=== PATIENT | male | born 1945 | race Caucasian/White ===

== ENCOUNTER 2017-03-17 19:07 | Inpatient (IN) | payer OTHER ==
[~2017-03-17] VITALS: Ht 170.2 cm; Wt 88.0 kg
--- NOTE | ~2017-03-17 | DS ---
Unit #: [id number] #: [id number] Patient: CARMELA CORRAL [id number] [address] [address] [id number] I MR#: [id number] NAME: CARMELA CORRAL ROOM: [facility] Age: 71 Sex: M Admission Date: 03/17/2017 : 1945 Discharge Date: 03/27/2017 Attending Physician: Kenia Ramirez M.D. Primary Care Physician: Generic Doctor Not In System DISCHARGE SUMMARY PRIMARY CARE PROVIDER None. PRINCIPAL DIAGNOSES 1. New-onset seizure, likely secondary to alcohol withdrawal. 2. Acute hypoxic respiratory failure, currently still maintained on 2 L of oxygen per nasal cannula continuously. 3. Non ST segment elevation myocardial infarction with normal coronaries per heart cath. 4. Right shoulder fracture, status post reverse total shoulder arthroplasty. 5. Left humerus fracture, nondisplaced. 6. Acute alcohol withdrawal. 7. Toxic metabolic encephalopathy. 8. Medication-induced hypersomnolence, i.e. Keppra induced. 9. Acute kidney injury, prerenal, resolved. 10. Chronic obstructive pulmonary disease. 11. Paroxysmal atrial fibrillation, now converted to sinus tachycardia. 12. Hypercoagulable state with history of deep venous thrombosis and pulmonary embolus. 13. Chronic alcohol abuse. 14. Aspiration pneumonia, status post treatment. Sepsis secondary to left lower lobe aspiration pneumonia, now resolved. 15. Severe lactic acidosis, now resolved. 16. Mild rhabdomyolysis. 17. Transaminitis, secondary to rhabdomyolysis and chronic alcohol abuse. 18. Alcoholic dementia. 19. Depression. 20. Moderate protein malnutrition. 21. Reactive hyperglycemia. 22. T12 compression fracture, undetermined duration, asymptomatic. 23. Osteoporosis. 24. Tobacco abuse. 25. Hyperlipidemia. CONSULTANTS 1. Dr. Pate, Neurology. 2. Dr. Barry, Cardiology. 3. Dr. Crane, Orthopedic Surgery. 4. Dr. Kowalski, Psychiatry. 5. Dr. Allen Delvalle, Pulmonology. PROCEDURES 1. Left-sided heart catheterization on March 23, 2017 with anterolateral Unit #: [id number] #: [id number] Patient: CARMELA CORRAL hypokinesis. Coronaries were normal. 2. EEG revealing changes of encephalopathy, no seizure activity. 3. Right reverse shoulder arthroplasty and right shoulder bicep tenodesis. This occurred without complication. 4. CT of the head without contrast on March 17, 2017 with no acute abnormality, but this was limited secondary to motion. 5. Chest x-ray on March 17, 2017 with poor inspiratory result. Endotracheal tube is 4 cm above the jazlyn. 6. X-ray of right shoulder on March 19, 2017 with transverse fracture of the proximal humerus and rotation of humeral head noted. 7. CT of the chest without contrast on March 21, 2017 with small bilateral pleural effusions with pneumonia in lung base, left greater than right. Aneurysmal dilatation of the aorta noted. Fracture of the right humerus. Compression fracture of T12, question acute versus subacute. 8. CT of the right upper extremity without contrast on March 21, 2017 with moderate to severely comminuted proximal humerus fracture with complete dislocation of the humeral head fragment posteriorly. Posterior rotation of the fragment with anterior dislocation of the anterior humeral fragment. Mild comminution of greater tuberosity and surgical neck fracture. 9. X-ray of left shoulder on March 24, 2017 with a subtle linear lucency involving the anatomic neck of the left humerus consistent with fracture. CLINICAL HISTORY AND HOSPITAL COURSE Mr. Corral is a nice 71-year-old male brought into our emergency department after witnessed seizure at home by family. Patient had a collapse after seizure and EMS was called. Patient was intubated for airway protection. Patient was started on antiepileptic medications in our emergency department and subsequently admitted to the ICU. In regard to patient's seizure, Dr. Pate was consulted. The patient was maintained on both Keppra and Vimpat until mental status improved. EEG did not reveal any seizure-like activity. Patient questionably had a seizure in the past but that was also again questionably related to alcohol withdrawal. I will note patient's alcohol level here was less than 5 upon presentation. Following extubation as outlined below, patient was tapered to single Keppra therapy. However, patient remained significantly somnolent on Keppra therapy and ultimately had to be changed to Vimpat. Somnolence resolved. Unfortunately, Vimpat on an outpatient basis is much too expensive. At this time given we have no evidence of any epileptic type disorder, it is most likely that patient's seizure was secondary to alcohol withdrawal. At this point, we are going to taper Vimpat over the next three days and monitor patient off of antiepileptic medications. He can follow up with Dr. Young as an outpatient. In regard to patient's respiratory failure upon presentation, Dr. Delvalle was consulted. The patient was found to have bibasilar aspiration pneumonia and was maintained on clindamycin. He completed a seven-day course of therapy but still remains mildly hypoxic with an elevated white blood cell count. I am going to complete another five-day course of Augmentin and hypoxia can be monitored. He also has underlying COPD, which I suspect is an associated factor in his hypoxia, and I will place him on Symbicort in addition to DuoNeb nebulizer treatments on a p.r.n. basis. He does not have any evidence of wheezing. I think hypoxia will resolve in the course of the next several days. Upon presentation, patient also had a troponin drawn which was initially elevated at 0.56 and peaked at 1.28. He also Unit #: [id number] #: [id number] Patient: CARMELA CORRAL had paroxysmal atrial fibrillation but converted back to normal sinus rhythm. Cardiology was consulted. Patient was initially placed on heparin drip and subsequently changed to therapeutic Lovenox. When mental status and respiratory status were improved, the patient underwent heart cath revealing normal coronaries. He will continue on aspirin therapy as an outpatient. Ejection fraction is normal at 50% to 55%. Patient did have some associated alcohol withdrawal during hospitalization requiring CIWA protocol and Librium which has subsequently been tapered. I will admit that these medications may have played a role in patient's encephalopathy and hypoactive delirium. He also had some associated sundowning and was initially on Risperdal but again was significantly somnolent and this has been tapered and discontinued. Sundowning has improved; however, I will provide some Risperdal on a p.r.n. basis given he is going to transfer to rehab. When patient was more awake, he was complaining of some right shoulder pain and his shoulder was noted over the course of the next few days to be significantly swollen and bruised. X-ray revealed a significant right humeral fracture for which Dr. Crane was consulted. Following normal heart cath, patient underwent reverse right shoulder arthroplasty. Postoperatively, he has done well. I will note preoperatively he also complained of some left shoulder pain and was found to also have a left humerus fracture that is nondisplaced and is nonoperative at this time. Patient today is clinically much improved, though his mental status still tends to be a bit low. After discussion with family in addition to my prior interaction with this patient, I think he has some alcoholic dementia. Plan is for him to be discharged to rehab and likely be discharged to an assisted living following rehab. I will note patient also has a history of multiple DVTs and PEs and was noncompliant with his anticoagulation as an outpatient. 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 He can be seen by hematology as an outpatient for further evaluation. Patient will be discharged to rehab today. DISCHARGE CONDITION Stable. DISCHARGE STATUS Discharge to rehab. DISCHARGE MEDICATIONS 1. Combivent nebulizer treatment 3 mL every six hours p.r.n. for shortness of breath. 2. Xarelto 20 mg daily. 3. Vimpat 100 mg p.o. daily on March 27, , and and then to be discontinued. 4. Lexapro 10 mg daily. 5. Metoprolol tartrate 12.5 mg b.i.d. 6. Senokot S one tablet b.i.d. 7. Lipitor 10 mg at bedtime. 8. Lisinopril 2.5 mg daily. 9. Daily multivitamin. 10. Aspirin 81 mg daily. 11. Oxycodone 5 mg one to two tablets p.o. q.4 hours p.r.n. for pain. Unit #: [id number] #: [id number] Patient: CARMELA CORRAL 12. Os-Oleksandr 500 plus D one tablet b.i.d. 13. Augmentin 875 mg p.o. b.i.d. for five days. 14. Symbicort 160/4.5 mcg two puffs b.i.d. 15. Oxygen at 3 L per nasal cannula now but titrate for saturations greater than or equal to 92%. DISCHARGE INSTRUCTIONS 1. The patient can follow a regular diet. 2. In regard to his upper extremity fractures, he is nonweightbearing on right upper extremity. (1) range of motion to elbow, wrist, and hand. To left upper extremity, he can perform pendulums and again do range of motion to elbow, wrist, and hand but is nonweightbearing. However, he can use his left upper extremity for ADLs and eating and use it for assistance with repositioning in and out of bed and chair. 3. Patient will follow up with Dr. Crane in two weeks. 4. Patient is to follow up with Dr. Musa Young of outpatient neurology upon discharge from rehab. 5. Patient will follow up with Dr. Barry upon discharge from rehab. Again, will have further discussion with family while in rehab regarding discharge plan from there but I anticipate discharge to assisted living. Time spent on discharge today, 57 minutes. Dictated by... Kenia Ramirez M.D. JACKIE/angi TD: 03/27/2017 09:45 JOB #: [id number] DISCHARGE SUMMARY Page 1 of 1 X Kenia Ramirez MD X DISCHARGE SUMMARY
--- NOTE | ~2017-03-17 | EKG ---
PATIENT: CARMELA DEMPSEY UNIT #: [id number] Ventricular Rate: 133 BPM Atrial Rate: 94 BPM QRS Duration: 72 ms Q-T Interval: 384 ms QTC Calculation(Bezet): 571 ms Calculated R Carmichaels: 27 degrees Calculated T Carmichaels: -19 degrees Diagnosis Line: Atrial fibrillation with rapid ventricular Diagnosis Line: response Diagnosis Line: Possible Anterior infarct , age undetermined Diagnosis Line: Abnormal ECG Diagnosis Line: When compared with ECG of 04-SEP-2016 08:53, Diagnosis Line: Atrial fibrillation has replaced Sinus rhythm Diagnosis Line: Vent. rate has increased BY 58 BPM Diagnosis Line: Borderline criteria for Anterior infarct are now Diagnosis Line: Present Diagnosis Line: ST now depressed in Anterolateral leads Diagnosis Line: T wave amplitude has increased in Anterior leads Diagnosis Line: Confirmed by NEERAJ TROY MD ([id number]) on Diagnosis Line: 03/18/2017 11:57:44 AM INTERPRETING MD: SYDNI HAYWOOD
--- NOTE | ~2017-03-17 | CO ---
Unit #: [id number] #: [id number] Patient: CARMELA DEMPSEY [id number] [facility] [address] [place], [place] [address] [id number] I MR#: [id number] NAME: CARMELA DEMPSEY ROOM: 341 Age: 71 Sex: M Admission Date: 03/17/2017 : 1945 Attending Physician: Kenia Ramirez M.D. Primary Care Physician: Generic Doctor Not In System Consultation Date: 03/19/2017 CONSULTATION REPORT REASON FOR CONSULTATION Alcohol abuse, seizure, respiratory failure, agitation, delirium. HISTORY OF PRESENT ILLNESS Mr. Seals is a 71-year-old, white male seen in CCU 3, bed 21 on 03/19/[address] [facility]. Patient was admitted with a new onset of seizure, respiratory failure, and collapse. Patient dressed in hospital attire, lying comfortably in bed. Confused. Unable to give any reliable information. Patient was somewhat sleepy. Received medication for agitation last night. Patient was extubated yesterday. Patient's daughter was in the room. Obtained information from her as well as from chart and the nursing staff. Patient has a long history of alcohol abuse and recent onset of seizure. Patient was drinking heavily prior to the admission. Patient was admitted with seizure and respiratory failure needing intubation. Patient still having periods of confusion and agitation. Patient's vital signs: 99.2, 84, 20, 147/78, and oxygen saturation 99%. PAST PSYCHIATRIC HISTORY Remarkable for history of alcohol abuse, history of depression, paranoia, history of assessment at [facility] in 2008 with similar problems. MEDICAL HISTORY AND MEDICATION HISTORY History of extensive DVT/PE, history of alcohol abuse, problems with memory, COPD, and hyperlipidemia. MEDICATIONS: On Lasix, Coumadin, and aspirin. ALLERGIES To penicillin. FAMILY HISTORY AND SOCIAL HISTORY Patient has a good support system from family. No known history of any abuse. History of substance abuse as mentioned above. Drug of choice: Alcohol. REVIEW OF SYSTEMS Complete review of systems is unremarkable, except as mentioned above. MENTAL STATUS EXAMINATION VITAL SIGNS: Please see above. GENERAL APPEARANCE: Patient dressed in hospital attire. Lying comfortably in bed. Somewhat sleepy, drowsy. Unable to give a coherent history. Unit #: [id number] #: [id number] Patient: CARMELA DEMPSEY ATTENTION SPAN AND CONCENTRATION: Poor. SPEECH: Unable to understand. ORIENTATION: Unable to assess. MOOD AND AFFECT: Flat. THOUGHT PROCESS AND THOUGHT CONTENT: Unable to assess. RECENT AND REMOTE MEMORY: Unable to assess. LANGUAGE: Unable to assess. FUND OF KNOWLEDGE: (1) . INSIGHT AND JUDGEMENT: Impaired. DIAGNOSES PSYCHIATRIC 1. Delirium F05. 2. Alcohol use disorder, severe, F10.20. SECONDARY DIAGNOSIS: Deferred. MEDICAL DIAGNOSIS: Please refer to H and P. STRESSORS: Psychosocial stressors. ASSESSMENT/PLAN 1. Supportive psychotherapy and psychoeducation provided to patient and family. Patient unable to comprehend much at this time. 2. Recommending at this time to continue with the current treatment and after patient is stable medically, consider inpatient rehab program, 30 days, such as [facility] or [facility]. If needed, consider med management to control agitation and psychosis. Please feel free to call if any questions, telephone number . Dictated by... Maco Kowalski M.D. HEBERT/prince TD: 03/20/2017 09:07 JOB #: [id number] CONSULTATION REPORT Page 1 of 1 X Maco Kowalski MD CONSULTATION REPORT
--- NOTE | ~2017-03-17 | CO ---
Unit #: [id number] #: [id number] Patient: CARMELA CORRAL [id number] [facility] [address] [place], [place] [address] [id number] I MR#: [id number] NAME: CARMELA CORRAL ROOM: 448 Age: 71 Sex: M Admission Date: 03/17/2017 : 1945 Attending Physician: Kenia Ramirez M.D. Primary Care Physician: Generic Doctor Not In System Consultation Date: 03/26/2017 CONSULTATION REPORT REASON FOR CONSULTATION Followup. DISCUSSION Mr. Carmela Corral is a 71-year-old male seen in room 448 bed-1 on 03/26/17 as a followup. Patient was seen at [facility]. Also obtained information from patient's daughter. Patient was sad, depressed, withdrawn, flat affect, confused but cooperative. Reported in pain. Patient had surgery on his right arm, recovering well. No agitation. Denied any thought of harming self or otherwise. MENTAL STATUS EXAMINATION VITAL SIGNS: 99.1, 96, 17, 120/69. Oxygen saturation 94%. GENERAL APPEARANCE: Patient dressed in hospital attire, lying in bed with the right hand having bandages and in a sling. Patient answered questions slowly. Attention span and concentration poor. Speech slow in volume and rate. Oriented in self. Mood and affect sad, dysphoric, flat, depressed. Thought process circumstantial. Thought content - guarded, paranoid but denied any thoughts of harming self or others. Recent and remote memory poor. Language - fair. Fund of knowledge fair. Insight and judgment impaired. DIAGNOSIS PSYCHIATRIC: 1. Alcohol use disorder, severe - F10.20. 2. Major depressive disorder, recurrent, severe - F33.0. 3. 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 ASSESSMENT/PLAN 1. Supportive psychotherapy and psychoeducation provided to patient but patient unable to comprehend much. 2. Recommending at this time to continue with current medication with the plan to add Lexapro 10 mg at bedtime for depressive symptoms. If needed, consider further additional medication. Please feel free to call if any questions. Telephone number [phone]. Dictated by... Maco Kowalski M.D. HEBERT/rocio Unit #: [id number] #: [id number] Patient: CARMELA CORRAL TD: 03/27/2017 08:54 JOB #: [id number] CONSULTATION REPORT Page 1 of 1 X Maco Kowalski MD CONSULTATION REPORT
--- NOTE | ~2017-03-17 | CO ---
Unit #: [id number] #: [id number] Patient: CARMELA CORRAL [id number] [facility] [address] [place], [place] [address] [id number] I MR#: [id number] NAME: CARMELA CORRAL ROOM: 448 Age: 71 Sex: M Admission Date: 03/17/2017 : 1945 Attending Physician: Kenia Ramirez M.D. Primary Care Physician: Generic Doctor Not In System Consultation Date: 03/27/2017 CONSULTATION REPORT REASON FOR CONSULTATION Followup. DISCUSSION Mr. Carmela Corral is a 71-year-old white male seen in room 448, bed one, on 03/27/17. The patient was seen at [facility]. The patient reported that he is doing fairly well, reports pain is better. The patient was able to participate in physical therapy. Patient's vital signs: 98.5, 87, 16, 118/63. Patient still having problems with confusion, problems with memory but able to answer questions appropriately. The patient denied any thoughts of harming self or others, still sad, depressed, withdrawn. No side effects of medication. REVIEW OF SYSTEMS Complete review of systems unremarkable. MENTAL STATUS EXAMINATION GENERAL APPEARANCE: Patient dressed casually, lying comfortably in bed, cooperative. ATTENTION SPAN AND CONCENTRATION: Fair to poor. SPEECH: Slow in volume with long pauses. ORIENTATION: Oriented in self and place. MOOD AND AFFECT: Sad, dysphoric, flat. THOUGHT PROCESS: Circumstantial. THOUGHT CONTENT: Guarded but denied any thoughts of harming self or others. RECENT AND REMOTE MEMORY: Poor. LANGUAGE: Intact. FUND OF KNOWLEDGE: Poor. INSIGHT AND JUDGMENT: Poor. DIAGNOSIS Psychiatric: 1. Alcohol use disorder, severe, F10.20. 2. Major cognitive disorder due to Alzheimer disease/alcohol use without behavioral disturbances, F02.80. ASSESSMENT/PLAN 1. Supportive psychotherapy/psychoeducation provided to patient. 2. Educated about benefits and side effects of medication and course and prognosis of illness. 3. Advised to continue with current medication, Risperdal and Lexapro combination. If needed, consider further adjustment of medication. We will continue to follow. Please feel free to call if any Unit #: [id number] #: [id number] Patient: CARMELA CORRAL, telephone number [phone]. Dictated by... Jennfier Hi TD: 03/30/2017 07:07 JOB #: [id number] CONSULTATION REPORT Page 1 of 1 X Maco Kowalski MD CONSULTATION REPORT
--- NOTE | ~2017-03-17 | HP ---
Unit #: [id number] #: [id number] Patient: CARMELA DEMPSEY [id number] [address] [place], [place] [address] [id number] I MR#: [id number] NAME: CARMELA DEMPSEY ROOM: [facility] Age: 71 Sex: M Admission Date: 03/17/2017 : 1945 Attending Physician: Kath Woods M.D. Primary Care Physician: Generic Doctor Not In System HISTORY AND PHYSICAL CHIEF COMPLAINT New onset seizure with respiratory failure and collapse. HISTORY This 71-year-old male with history of extensive PEs, DVTs, COPD, hyperlipidemia, and alcohol abuse, is admitted following a seizure. Apparently, the patient was outside this afternoon. Around 6:30 was staring off in space, and then had two witnessed what sounds to be generalized seizures. He was put on his left side, and was unresponsive. He had labored breathing but never completely stopped breathing. EMS arrived and intubated the patient in the field. He was brought to this emergency department where he looks to be liang, quite ill, bradycardic. Never lost his pulse. ABG performed showed profound metabolic acidosis and hypoxic respiratory failure. He was given an amp of bicarb. His initial EKG revealed A-fib with RVR which is new, but it appears to now be in a sinus tachycardia. He was now awake, alert, following commands, moving all extremities. Case was discussed with neurology after a head CT showed no acute disease, but was limited study. The patient received Keppra and Vimpat. Orders have been given for lactulose and elevated ammonia level and Rocephin for a left lower lobe infiltrate. The patient does drink on a daily basis eight beers and about a pint of whiskey level. His current alcohol level is less than 5. No previous history of seizures. PAST MEDICAL HISTORY 1. History of extensive DVTs and PEs. The patient was admitted to this facility 08/2016 for bilateral submassive pulmonary emboli, status post EKOS. He had extensive recurrent right lower extremity DVT. Unfortunately, the patient is not compliant with his Coumadin. 2. History of alcohol abuse. 3. Some memory loss. 4. COPD. 5. Hyperlipidemia. 6. Appendectomy. 7. Varicose vein stripping. ALLERGIES Possibly to penicillin, unknown reaction. HOME MEDICATIONS 1. Lasix p.r.n. 2. Coumadin which the patient is noncompliant. 3. Aspirin 81 mg daily. Unit #: [id number] #: [id number] Patient: CARMELA DEMPSEY FAMILY HISTORY Negative for blood clots. SOCIAL HISTORY The patient lives alone. He smokes one pack per day of tobacco. He drinks eight beers and a pint of whiskey on a daily basis. REVIEW OF SYSTEMS Impossible to obtain as the patient is intubated. PHYSICAL EXAMINATION GENERAL APPEARANCE: Intubated 71-year-old male who was awake and alert when I walked into the room. VITAL SIGNS: Temperature has not yet been obtained, pulse 113, respirations 16, initial blood pressure 162/146, currently blood pressure is 121/81. O2 saturation is 100% on FIO2 of 100%. HEENT: Eyes PERRLA. Extraocular muscles are intact. Pharynx is benign with poor dentition. NECK: Supple without adenopathy or thyromegaly. CHEST: Reveals some rhonchi. CARDIAC: Slightly tachy S1 and S2 without murmur. ABDOMEN: Bowel sounds are present. Nontender. No hepatosplenomegaly or masses. EXTREMITIES: Notable for chronic swelling of the right leg. Pedal pulses are diminished. NEUROLOGIC EXAM: The patient was awake, alert. When I walked into the room, he was following commands and moving all of his extremities equally. DIAGNOSTIC STUDIES LABORATORY: Admission labs - hematocrit is 43.8, MCV 106.9, white blood count is 18.1, normal platelet count. Coags are normal. SMA-12 - glucose 311 which was newly elevated, creatinine 1.9, also newly elevated. Chloride 96, CO2 is 9, AST 50. Ammonia level 329. Will repeat value. Lactic acid 20. Alcohol level less than 5. Acetaminophen and salicylate levels are negligible. Cardiac markers are negative. ABG - pH 6.92, pCO2 42, pO2 150, O2 saturation is 95% on tidal volume 600, AC 16, FIO2 100% and PEEP of 5. His urine tox screen is positive for benzos. Urinalysis - 3+ protein, positive glucose, 3+ blood with 5-10 red cells, 10-25 white cells but no bacteria. IMAGING: Chest x-ray - ET-tube in good position. Left lower lobe infiltrate noted. Head CT very limited but grossly normal. May suggest repeat head CT. CARDIOVASCULAR: EKG shows A-fib, RVR, rate [address] wave depression noted V4 through V6. Unit #: [id number] #: [id number] Patient: CARMELA DEMPSEY ASSESSMENT 1. New onset seizure with collapse: Patient required intubation in the field for respiratory distress, but never stopped breathing, never lost his pulse. He is now awake, following commands. The seizure may be related to alcohol withdrawal, may be related to respiratory issues with secondary seizure. 2. History of extensive pulmonary emboli and DVT, noncompliant with Coumadin. 3. Rule out aspiration pneumonia. 4. Acute hypoxic respiratory failure, rule out PE versus related to pneumonia. 5. Alcohol abuse: Patient's alcohol level is less than 5 currently. 6. Likely reactive hyperglycemia. 7. Elevated ammonia level: Will repeat. 8. Acute kidney injury. 9. COPD with tobacco abuse. 10. Initial A-fib, now in a sinus rhythm. PLANS 1. IV heparin. 2. Rocephin and clindamycin along with Duo-Nebs pending sputum and blood cultures. 3. Repeat cardiac enzymes, EKG. Will request an echo in the morning. Repeat chemistries and ammonia level along with ABG and check IV fluids and ventilator appropriately. 4. Case was discussed with neurology. Patient is receiving Vimpat and Keppra. 5. Will ask for repeat head CT and EEG. 6. Benzos and vitamins. 7. Pulmonary consultation. 8. H2 jenifer gastritis prophylaxis. 9. Further workup and consultants depending on above. Critical care time spent in evaluating this patient was 40 minutes. Dictated by Kath Woods M.D. AML/df TD: 03/18/2017 05:03 JOB #: [id number] CC: Jennifer Trevino HISTORY AND PHYSICAL Page 1 of 1 X Kath Woods MD HISTORY AND PHYSICAL
--- NOTE | ~2017-03-17 | CT71 ---
[facility] A Service of [facility] RADIOLOGY TEXT RESULTS PATIENT: CARMELA DEMPSEY LOCATION: [address] : [birth year] UNIT #: [id number] AGE: [address]: Kenia Ramirez MD SEX: M ORDER DR: [id number] [facility] [address] [facility]. [place], [place] [address] [id number] I MR#: [id number] #: [id number] NAME: CARMELA DEMPSEY : 1945 SEX: M STUDY DATE/TIME: 03/17/2017 19:22 UNIT: [facility] ROOM: [facility] STUDY DESCRIPTION: CT Head Wo Contrast Attending Physician: Kenia Ramirez M.D. Ordering Physician: Prabhakar Carroll D.O. Primary Care Physician: Generic Doctor Not In System MEDICAL IMAGING REPORT This report is preliminary unless electronic signature is present EXAM Head CT without contrast 03/17/2017 HISTORY Patient unresponsive after [address] exam was performed with one or more of the following radiation dose reduction techniques: automatic exposure control, adjustment of mA and/or kV according to patient size, and iterative reconstruction. FINDINGS Multiple axial images were obtained from the skull base to vertex without intravenous contrast administration. Examination is severely limited by patient motion with resulting artifact. Consider repeat head CT for further evaluation. There is generalized enlargement of the ventricles and sulci characteristic of atrophy and there is periventricular microvascular white matter ischemic change. 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 There is no midline shift. There is no mass or mass effect, hemorrhage or acute infarct. The visualized paranasal sinuses are clear. IMPRESSION Severely limited examination by patient motion with resulting artifact. Consider repeat head CT for further evaluation. No gross acute abnormality is identified on this severely limited exam. Dictated by... Brock Bella M.D. THIS IS AN ELECTRONICALLY VERIFIED REPORT Brock Bella M.D. at 03/18/2017 2:19 PM [facility]/cmm [facility] A Service of [facility] RADIOLOGY TEXT RESULTS PATIENT: CARMELA DEMPSEY LOCATION: [facility]3-21 : [birth year] UNIT #: [id number] AGE: [address]: Kenia Ramirez MD SEX: M ORDER DR: TD: 03/18/2017 08:18 JOB #: [id number] MEDICAL IMAGING REPORT Page 1 of 1 COPY
--- NOTE | ~2017-03-17 | CO ---
Unit #: [id number] #: [id number] Patient: CARMELA DEMPSEY [id number] [facility] [address] [facility]. [place], [place] [address] [id number] I MR#: [id number] NAME: CARMELA DEMPSEY ROOM: 341 Age: 71 Sex: M Admission Date: 03/17/2017 : 1945 Attending Physician: Kenia Ramirez M.D. Primary Care Physician: Generic Doctor Not In System Consultation Date: 03/18/2017 CONSULTATION REPORT PRIMARY CARE PHYSICIAN Generic doctor, not in system. REASON FOR CONSULTATION New onset seizure with respiratory failure and collapse. PATIENT IDENTIFICATION This is a 71-year-old, right-handed, white male, who is evaluated in room ICU 21 at [facility]. SOURCE OF INFORMATION The family and detailed evaluation done by admitting team. PROBLEM LIST 1. The biggest issue I believe is noncompliance. 2. History of extensive DVTs and PEs in the past. He is supposed to be on anticoagulation, and he is apparently not taking. 3. History of alcohol abuse. 4. Memory loss. 5. COPD. 6. Hyperlipidemia. 7. Appendectomy. 8. Varicose vein stripping. HISTORY OF PRESENT ILLNESS This is a 71-year-old gentleman with extensive medical issues and he was outside yesterday afternoon around 6:30 p.m., he apparently started staring off in space and then had several witnessed seizures, apparently 2 generalized convulsive seizures. He was put on his left side. He was unresponsive. He had labored breathing. EMS was called and they arrived and intubated patient in the field. He was brought to the emergency room. His ABG showed profound metabolic acidosis and hypoxic respiratory failure. He was given an amp of bicarb. He had some atrial fibrillation and RVR on his EKG, but then later on was in sinus tach, so he was put on Keppra and Vimpat. He was intubated and put in ICU and canoe maker saw him. When I saw this morning, he was awake and alert. He was extubated and he was following commands. He was confused. His alcohol level was less than 5. The question is that was he withdrawing. His daughter, Anita, who was at bedside, reports that there was alcohol in the refrigerator. He has no prior history of seizures. No prior history of DTs, but rather heavy alcohol user, so the question become is this withdrawal or these new Unit #: [id number] #: [id number] Patient: CARMELA DEMPSEY seizures or anything else going on. Nothing suggesting FILM AND VIDEO EDITOR infection. Head CT was okay. He is noncompliant to the medication. PAST MEDICAL HISTORY As discussed above. PAST SURGICAL HISTORY As discussed above. ALLERGIES Penicillin, unknown reaction. HOME MEDICATIONS Lasix, Coumadin, aspirin. FAMILY HISTORY Negative for blood clots. No history of seizures. SOCIAL HISTORY He lives alone. Smokes about a pack a day of tobacco and drinks 8 beers and a pint of whiskey essentially on daily basis. He has some alcohol in his refrigerator. REVIEW OF SYSTEMS Could not be obtained. He is too drowsy. He is too confused, but he is extubated. PHYSICAL EXAMINATION VITAL SIGNS: Temperature 98 degrees Fahrenheit; pulse is 109, it was anywhere from 86 to 109; respirations 20; blood pressure 118/68, it is running around that range and no pain was reported; O2 saturations were 92% to 100%. Weight of 202 pounds. BMI was 31. NEUROLOGIC: The patient is awake. He is alert. He thinks he is at home. He is not really oriented to time. He starts telling me his age. Cranial examination demonstrates respond to threats in the primary peng. Full peng are questionable. Eye movements are conjugate. I did not see any ptosis. I did not see any nystagmus. Extraocular movements seemed to be intact. Strength of muscles of facial expression is normal. Hearing seemed to be intact. Tongue was midline. I could not visualize the oropharynx or uvula. Head turning was spontaneous. Motor examination demonstrated normal bulk, tone. Strength was 5-/5 all over. No tremors were seen. Sensory examination intact for soft touch and pain sensation. No extinction was seen. Romberg was not evaluated. Gait examination was deferred. I could not get any reflexes. Toes are equivocal. Coordination was slow. DIAGNOSTIC STUDIES Unit #: [id number] #: [id number] Patient: CARMELA DEMPSEY LABORATORY RESULTS: Reviewed. His initial pH was 6.9, it is 7.5. Random glucose was 175 to 311. Albumin was 2.9, AST is 82, ALT is 46. They both went up. Troponin was 1.28, it was 0.56 yesterday. Ammonia level was 329 yesterday, it is 16 now. B12 is pending. Lactic acid was 19.9 yesterday. PTT was 30 to 49.7. White count is 16.0, H and H of 11.9 and 35.0, platelet count of 203. Urine drug screen was positive for benzodiazepines, probably what he got. Urinalysis showed 3+ protein, glucose 100, 10 to 25 wbc's, and few bacteria. IMAGING STUDIES: Head CT was reported as unremarkable. This was a limited exam because of motion artifact. IMPRESSION 1. Multiple seizures, was he going through withdrawal, we may not be able to ever know. He has no prior history of seizures. He is improving, so I told the family the first thing was to stop the seizures, so continue the present antiepileptics. 2. Issue is to find out if he has history of epilepsy and treat it if needed, otherwise this could be provoked events. 3. Issue is airway breathing and circulation. He is improving, so we will give him supportive care. I talked to his daughter. I will follow him and see how things go and further workup may be based on what we find. We will check B12, folate, continue thiamin and we will see how things turnaround planner. Call me for any other questions, issues, or concerns. Dictated by... Zeyad Pate M.D. AILYN/jean-pierre TD: 03/19/2017 03:13 JOB #: [id number] CONSULTATION REPORT Page 1 of 1 X Zeyad Pate MD CONSULTATION REPORT
--- NOTE | ~2017-03-17 | CR72 ---
[facility] A Service of [facility] RADIOLOGY TEXT RESULTS PATIENT: CARMELA DEMPSEY LOCATION: [address] : [birth year] UNIT #: [id number] AGE: [address]: Kenia Ramirez MD SEX: M ORDER DR: [id number] [facility] [address] [facility]. [place], [place] [address] [id number] I MR#: [id number] Acc #: [id number] NAME: CARMELA DEMPSEY : 1945 SEX: M STUDY DATE/TIME: 03/17/2017 19:44 UNIT: [facility] ROOM: [facility] STUDY DESCRIPTION: CR Chest Single View Portable Attending Physician: Kenia Ramirez M.D. Ordering Physician: Prabhakar Carroll D.O. Primary Care Physician: Generic Doctor Not In System MEDICAL IMAGING REPORT This report is preliminary unless electronic signature is present EXAM Portable chest 03/17/2017 HISTORY Respiratory failure, intubated, follow up infiltrates. Altered mental status, shortness of breath today. FINDINGS The cardiac and mediastinal structures are stable compared with 09/03/2016. Endotracheal tube has been inserted with the tip 4 cm above the jazlyn. There is poor inspiratory result and elevation of the left hemidiaphragm with infiltrate or atelectasis in the left lower lobe and there is discoid atelectasis at the right base. The upper lungs are clear. There are no pleural effusions. IMPRESSION 1. Endotracheal tube tip is 4 cm above the jazlyn. 2. Poor inspiratory result with infiltrate or atelectasis in the left lower lobe. Dictated by... Brock Bella M.D. THIS IS AN ELECTRONICALLY VERIFIED REPORT Brock Bella M.D. at 03/18/2017 2:19 PM CHARMAINE/himanshu TD: 03/18/2017 08:28 JOB #: [id number] MEDICAL IMAGING REPORT Page 1 of 1 COPY
--- NOTE | ~2017-03-17 | CO ---
Unit #: [id number] #: [id number] Patient: CARMELA CORRAL [id number] [facility] [address] [facility]. [place], [place] [address] [id number] I MR#: [id number] NAME: CARMELA CORRAL ROOM: 341 Age: 71 Sex: M Admission Date: 03/17/2017 : 1945 Attending Physician: Kenia Ramirez M.D. Primary Care Physician: Generic Doctor Not In System Consultation Date: 03/23/2017 CONSULTATION REPORT REASON FOR CONSULTATION Followup. DISCUSSION Mr. Carmela Corral is a 71-year-old white male, seen in room 341, bed 1 on 03/23/2017 at [facility]. The patient dressed in hospital attire, lying comfortably in bed, and seems somewhat sleepy, drowsy, but able to answer questions appropriately. The patient still having problem with anxiety, problem with memory, confusion. The patient's WBC is 13.2, hemoglobin 10.2. The patient's vital signs; temperature 98.2, pulse 92, respirations 18, blood pressure 110/59, and oxygen saturation 97%. The patient did not show any agitation last night. REVIEW OF SYSTEMS Complete review of systems unremarkable. MENTAL STATUS EXAMINATION General appearance, the patient dressed in hospital attire, lying comfortably in bed. Somewhat sleepy. Attention span and concentration, poor. Speech, slow in volume. Answered questions in single word. Oriented in self. Mood and affect were sad, dysphoric, flat. Thought process, circumstantial. Thought content, guarded, paranoid, but denied any thoughts of harming self or others. Recent and remote memory, impaired. Language fair. Fund of knowledge, poor. Insight and judgment, impaired. DIAGNOSES Psychiatric: Alcohol use disorder, severe, F10.20, delirium, F05, improving. ASSESSMENT AND PLAN Recommending at this time to continue with current treatment. If needed, consider further adjustment of medication. The patient is slowly making progress. We will continue with current medication, Risperdal 0.5 mg at bedtime. If needed, consider further adjustment. Please feel free to call if any questions telephone #[phone]. Dictated by... Maco Kowalski M.D. HEBERT/jean-pierre HERNANDEZ: 03/23/2017 15:23 Unit #: [id number] #: [id number] Patient: CARMELA CORRAL TD: 03/23/2017 17:25 JOB #: [id number] CONSULTATION REPORT Page 1 of 1 X Maco Kowalski MD CONSULTATION REPORT
--- NOTE | ~2017-03-17 | CO ---
Unit #: [id number] #: [id number] Patient: CARMELA DEMPSEY [id number] [address] [place], [place] [address] [id number] I MR#: [id number] NAME: CARMELA DEMPSEY ROOM: [facility] Age: 71 Sex: M Admission Date: 03/17/2017 : 1945 Attending Physician: Kenia Ramirez M.D. Primary Care Physician: Generic Doctor Not In System Consultation Date: 03/17/2017 CONSULTATION REPORT REASON FOR CONSULT ICU management. CHIEF COMPLAINT Tonic clonic seizure. HISTORY OF PRESENT ILLNESS This is a 71-year-old male with past medical history significant for pulmonary embolus, DVT, alcoholism, questionable dementia versus depression, who presented to the emergency room after a witnessed generalized tonic clonic seizure. Per family, the patient is a heavy drinker but they are unsure how much he drinks daily. They deny any recent symptom like fever, chills or cough. However, patient's ventilation at home was broken and he was in the hot weather for the last few days drinking. Today, patient was with his family and he appeared okay for them until he suddenly started seizing and after that his eyes were rolled up and he wasn't breathing so EMS arrived and intubated him in the scene with a nasal tube. Upon presentation, the patient's pH was 6.9, lactic acid 19. The patient currently is waking up and following simple commands. His vital signs appear to be stable. PAST MEDICAL HISTORY 1. DVT. 2. PE. 3. Alcoholism. 4. Questionable dementia. SOCIAL HISTORY The patient lives alone. He drinks whiskey every day. No illicit drug abuse. He is retired. FAMILY HISTORY Noncontributory. ALLERGIES Penicillin. HOME MEDICATIONS Aspirin. Unit #: [id number] #: [id number] Patient: CARMELA DEMPSEY REVIEW OF SYSTEMS Unable to obtain from the patient due to his condition. PHYSICAL EXAMINATION GENERAL: The patient is intubated nasally and is waking up, following simple commands. VITAL SIGNS: Blood pressure 124/62, respiratory rate 24, O2 saturation 100%. HEENT: Atraumatic, normocephalic. PERRLA, EOMI. NECK: Supple. No JVD, no lymphadenopathy. CHEST: Clear to auscultation bilaterally. HEART: S1, S2. No murmur, gallops or rubs. ABDOMEN: Soft, nontender. Bowel sounds positive. No hepatosplenomegaly. EXTREMITIES: No edema or cyanosis. SKIN: No rashes. STAGECRAFT PROFESSOR: The patient is awake, on the ventilator. He is following simple commands with no focal weakness. DIAGNOSTIC STUDIES LABORATORY: pH 6.9, CO2 42, creatinine 1.9, lactic acid 19, white blood count 18.1, platelets 316. IMAGING: Chest x-ray and CAT scan were reviewed and noted by me. ASSESSMENT 1. Acute hypoxic/hypercarbic respiratory failure. 2. Status epilepticus. 3. Severe lactic acidosis. 4. Alcoholism. 5. Acute kidney injury. 6. Rule out rhabdomyolysis. 7. History of PE/DVT. PLAN 1. Will continue patient on the vent; however, will reassess for extubation in the morning. If not ready yet, then we need to switch his nasal intubation to oral. 2. Vimpat and Keppra pending further neurologic evaluation. 3. Generous IV hydrating expecting that patient will have rhabdomyolysis. 4. Clindamycin for possible aspiration pneumonia. 5. Lactulose and rifaximin. 6. DVT/GI prophylaxis. Critical care time spent on this patient was 35 minutes. Dictated by... Jennifer Harris TD: 03/18/2017 07:40 JOB #: [id number] Unit #: [id number] #: [id number] Patient: CARMELA DEMPSEY CONSULTATION REPORT Page 1 of 1 X ISIDORO VELASCO MD CONSULTATION REPORT
--- NOTE | ~2017-03-17 | CO ---
Unit #: [id number] #: [id number] Patient: CARMELA DEMPSEY [id number] [address] [place], [place] [address] [id number] I MR#: [id number] NAME: CARMELA DEMPSEY. ROOM: 341 Age: 71 Sex: M Admission Date: 03/17/2017 : 1945 Attending Physician: Kenia Ramirez M.D. CONSULTATION REPORT CHIEF COMPLAINT Right shoulder fracture noted on chest x-ray. HISTORY OF PRESENT ILLNESS The patient is a 71-year-old male with history of alcohol abuse, admitted for evaluation of seizures 4 days ago. He does not recall any trauma. He reportedly had a first seizure 4 days ago. During this hospitalizations, he was noted to noted to have an aspiration pneumonia as well as an acute MN. Comminuted right proximal humeral fracture was noted on x-ray, therefore Orthopedic consultation is requested. PAST MEDICAL HISTORY Remarkable for extensive history of deep venous thrombosis and pulmonary emboli, alcohol abuse, recently diagnosed myocardial infarction, hyperlipidemia, pneumonia, COPD, tobacco abuse, possible dementia. HOME MEDICATIONS Coumadin with questionable compliance; aspirin; Lasix. ALLERGIES Penicillin. PAST SURGICAL HISTORY Appendectomy, varicose vein surgery. SOCIAL HISTORY The patient lives alone. He smokes one pack per day. He drinks 8 beers and drinks 1 pint of whiskey daily. PHYSICAL EXAMINATION VITAL SIGNS: Height 5 feet 7 inches, weight 199 pounds. GENERAL: This is a drowsy white male, who wakes up and answers questions marginally. The patient does not recall any history of trauma. He obviously has some blunted affect and blunted mental capacity at this point. He is unable to follow any detailed commands. EXTREMITIES: Evaluation of the right shoulder demonstrates mild swelling, but no bruising. The patient has tenderness and passive range of motion of the shoulder. Flexion and extension of the elbow are nontender. Able to flex and extend his fingers. Sensation is intact in the right hand. Radial pulse is 1+/2. DIAGNOSTIC STUDIES LABORATORY RESULTS: AP views of the right shoulder demonstrates a 4-part displaced proximal humeral fracture. Unit #: [id number] #: [id number] Patient: CARMELA DEMPSEY IMPRESSION Right proximal humeral fracture. PLAN 1. CT scan with sagittal coronal reconstructions. 2. Although in most cases, we would proceed operatively. In this case, the patient has multiple medical problems that was made preclude operative intervention. CT scan will be done to dictate prognosis and possible surgery in the future once he stabilizes medically. We will follow closely during this admission. Dictated byJennifer Latif/jean-pierre TD: 03/21/2017 16:42 JOB #: [id number] CONSULTATION REPORT Page 1 of 1 X Krzysztof Ferreira MD X CONSULTATION REPORT
--- NOTE | ~2017-03-17 | EKG ---
PATIENT: CARMELA DEMPSEY UNIT #: [id number] Ventricular Rate: 106 BPM Atrial Rate: 106 BPM P-R Interval: 190 ms QRS Duration: 64 ms Q-T Interval: 350 ms QTC Calculation(Bezet): 464 ms P Conway: 53 degrees Calculated R Conway: 3 degrees Calculated T Conway: 69 degrees Diagnosis Line: Sinus tachycardia Diagnosis Line: Low voltage QRS Diagnosis Line: Borderline ECG Diagnosis Line: No previous ECGs available Diagnosis Line: Confirmed by ELVIRA ATKINS MD ([id number]) on Diagnosis Line: 03/19/2017 7:12:00 AM INTERPRETING MD: VIKTORIA
--- NOTE | ~2017-03-17 | OR ---
Unit #: [id number] #: [id number] Patient: CARMELA CORRAL [id number] [address] [place], [place] [address] [id number] I MR#: [id number] NAME: CARMELA CORRAL. ROOM: 448 Date of Procedure: 03/25/2017 Admission Date: 03/17/2017 Surgeon: Brock Crane M.D. : 1945 Attending Physician: Kenia Ramirez M.D. Primary Care Physician: Generic Doctor Not In System OPERATIVE REPORT PREOPERATIVE DIAGNOSIS Right four-part proximal humerus fracture dislocation. POSTOPERATIVE DIAGNOSES 1. Right four-part proximal humerus fracture dislocation. 2. Right shoulder partial long head of biceps tendon tear. PROCEDURES PERFORMED 1. Right reverse shoulder arthroplasty. 2. Right shoulder biceps tenodesis. IMPLANTS 1. DJO Surgical size 12 AltiVate stem with a 32, neutral humeral socket liner. 2. DJO Surgical P2 baseplate with a 32, neutral glenosphere. ACCOUNT REVIEW SPECIALIST Nerissa Ivory APRN, RNFA ANESTHESIA General with interscalene nerve block. ESTIMATED BLOOD LOSS 150 mL. COMPLICATIONS None apparent. DRAINS Medium Hemovac x1. INDICATIONS FOR PROCEDURE Mr. Corral is a 71-year-old gentleman with a right four-part proximal humerus fracture dislocation. He had an alcohol withdrawal seizure and had a fixed posterior dislocation of the humeral head relative to the glenoid. This was perched on the posterior rim of the glenoid. This is in the setting of 4-part fracture. We have discussed the nature of radiographs with the patient and family. We discussed operative intervention in the form of a reverse shoulder arthroplasty. There were minimal to this, and he elected to proceed. Unit #: [id number] #: [id number] Patient: CARMELA CORRAL DESCRIPTION OF PROCEDURE The patient was identified in the preoperative holding area. The operative site was marked. Preoperative antibiotics were administered. A regional anesthetic block was performed. The patient was brought to the operating room, and placed supine on the operating table. General anesthetic was induced. The patient was positioned in the beach-chair position. The right upper extremity was then prepped and draped in a sterile fashion. A standard deltopectoral approach was performed. Dissection was carried down through the subcutaneous tissues. The cephalic vein was identified and retracted laterally with the deltoid. The subdeltoid space was developed. The dissection was carried down on the medial aspect beyond the pectoralis major to the conjoined tendon. The subscapularis was then identified. The subscap itself was actually ruptured off the lesser tuberosity. The lesser tuberosity initially appeared to be intact. Later, this was found to be fractured as well, and a portion of this was removed with a small rongeur. The greater tuberosity fragments were then identified as well. There were two separate fragments of the greater tuberosity. FiberTape sutures were tied placed in these. The shaft was then inspected and prepared for implantation of the reverse component. Metaphyseal bone and an intramedullary bone were removed, and saved for later bone grafting. There was a comminuted fragment off the medial calcar. This was retrieved, dissected free, but preserving soft tissue attachments. Care was taken to avoid injury to the axillary nerve in this location. A FiberTape suture was then passed through the soft tissue attachment to this piece, and looped around the humeral shaft as a cerclage-type suture. This held the fragment in place, and provided an appropriate medial calcar support for the implant, and maintained closed cortex on the medial metaphysis. The humerus was then actually dislocated anteriorly to retrieve the head from posterior to the glenoid. This was difficult to retrieve, and we were ultimately able to place Izaguirre elevators and similar-type elevators over the posterior limb of the glenoid, and elevate the head off its perched position, and de-rotate this out in the glenohumeral joint essentially facing 180 degrees away from the glenoid. This was grasped with a Nicole. There were inferior capsular attachment remaining, these were divided, and the humeral head was removed. The labrum was then removed. The humerus was subluxed back posteriorly at this point. We had easy end on glenoid access as the head was absent. The glenoid was then prepared by drilled the centering hole, followed by insertion of the reaming tap. We then reamed down the bleeding cancellous bone to the desired depth. We then inserted the real base plate. Four peripheral locking screws were placed. The real 32, neutral glenosphere was secured. Attention was then turned back to the humerus. A size 12 stem was opened. A size 14 cement restrictor was placed in the canal. We trialed off the real stem, and assessed our desired height. The stem was then cemented with a hybrid cementing technique with distal potting of the stem and cement, and proximal bone grafting. The stem was held in the desired position until the cement was allowed to cure. We then impacted the 32, neutral humeral socket liner. Sutures were passed through the stem for tuberosity repair. The shoulder was then reduced. The greater tuberosity was repaired back with two FiberTape sutures. The lesser tuberosity again was fractured with the subscap that ruptured off separately. The subscap tendon was repaired back to the construct as well. The cerclage suture through the medial suture hole of the implant was tied at last completing the repair. The arm was taken through range of motion, and the Unit #: [id number] #: [id number] Patient: CARMELA CORRAL tuberosities moved as a unit with the humeral shaft. The wound was then irrigated with pulsatile lavage. A subdeltoid drain was placed. The wound was then closed with 0-Vicryl in the deltopectoral interval, followed by 2-0 Vicryl and a running Monocryl in the skin. Steri-Strips and sterile dressings were applied. DISPOSITION Stable to the recovery room. Dictated by... Jennifer Cota/jean-pierre TD: 03/25/2017 18:06 JOB #: [id number] OPERATIVE REPORT Page 1 of 1 X Brock Crane MD X PROCEDURE OPERATIVE NOTE
--- NOTE | ~2017-03-17 | EKG ---
PATIENT: CARMELA DEMPSEY UNIT #: [id number] Ventricular Rate: 90 BPM Atrial Rate: 90 BPM P-R Interval: 180 ms QRS Duration: 68 ms Q-T Interval: 378 ms QTC Calculation(Bezet): 462 ms P Dallas: 36 degrees Calculated R Dallas: -18 degrees Calculated T Dallas: -36 degrees Diagnosis Line: Normal sinus rhythm Diagnosis Line: Septal infarct , age undetermined Diagnosis Line: Abnormal ECG Diagnosis Line: When compared with ECG of 17-MAR-2017 22:50, Diagnosis Line: Septal infarct is now Present Diagnosis Line: ST now depressed in Inferior leads Diagnosis Line: T wave inversion now evident in Inferior leads Diagnosis Line: Confirmed by KEL HAGEN MD ([id number]) on Diagnosis Line: 03/19/2017 3:53:03 PM INTERPRETING MD: OKSANA
--- NOTE | ~2017-03-17 | CO ---
Unit #: [id number] #: [id number] Patient: CARMELA CORRAL [id number] [facility] [address] [facility]. [place], [place] [address] [id number] I MR#: [id number] NAME: CARMELA CORRAL ROOM: 448 Age: 71 Sex: M Admission Date: 03/17/2017 : 1945 Attending Physician: Kenia Ramirez M.D. Primary Care Physician: Generic Doctor Not In System Consultation Date: 03/25/2017 CONSULTATION REPORT DISCUSSION Mr. Carmela Corral is a 71-year-old male seen on 03/25/17 in room 341, bed 1 at [facility]. Patient's daughter was at the bedside. She reported that she has noticed that patient is extremely sad, depressed, and feeling of hopelessness. Patient continues to have problem with memory and confusion. Patient was having problem with memory issues prior to coming to the hospital, but much worse now. Patient's vital signs are 99, 88, 16, 117/70, and oxygen saturation 91%. Patient is not showing any agitation, but having problems with confusion, memory, and also sad and depressed; but denied any suicidal or homicidal ideations. REVIEW OF SYSTEMS Complete review of systems unremarkable. MENTAL STATUS EXAMINATION GENERAL APPEARANCE: Patient dressed in hospital attire. Lying comfortably in bed. ATTENTION SPAN AND CONCENTRATION: Poor. SPEECH: Low in volume. ORIENTATION: Oriented in self. MOOD AND AFFECT: Flat. THOUGHT PROCESS: Circumstantial. THOUGHT CONTENT: Patient denied any thoughts of harming self or others or any hallucinations. RECENT AND REMOTE MEMORY: Poor. LANGUAGE: Fair. FUND OF KNOWLEDGE: Poor. INSIGHT AND JUDGEMENT: Impaired. (1) . PSYCHIATRIC 1. Alcohol use disorder, severe, F10.20. 2. Delirium, F05, resolving. 3. 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 ASSESSMENT/PLAN 1. Supportive psychotherapy and psychoeducation provided to patient and family. 2. Educated about benefits and side effects of medication and course and prognosis of illness. 3. Recommending at this time to add Lexapro 10 mg at bedtime for mood symptoms. Will continue to follow and make further adjustments of medication if needed. Unit #: [id number] #: [id number] Patient: CARMELA CORRAL Dictated by... Jennifer Hi/prince TD: 03/26/2017 08:10 JOB #: [id number] CONSULTATION REPORT Page 1 of 1 X Maco Kowalski MD X CONSULTATION REPORT
--- NOTE | ~2017-03-17 | CO ---
Unit #: [id number] #: [id number] Patient: CARMELA CORRAL [id number] [facility] [address] [facility]. [place], [place] [address] [id number] I MR#: [id number] NAME: CARMELA CORRAL ROOM: 341 Age: 71 Sex: M Admission Date: 03/17/2017 : 1945 Attending Physician: Kenia Ramirez M.D. Primary Care Physician: Omid Doctor Not In System Consultation Date: 03/22/2017 CONSULTATION REPORT REASON FOR CONSULTATION Followup. DISCUSSION Mr. Carmela Corral is a 71-year-old white male, seen in room 341, bed 1, on 03/22/2017 at [facility]. The patient was lying comfortably in bed, not moving his right arm due to fracture of his right humerus. The patient's son was at the bedside. The patient still having problem with recalling things, problem with memory and confusion, but able to answer questions appropriately and cooperative. The patient scheduled to have a cardiac cath scheduled for tomorrow and after that possible surgery. The patient was able to sleep good. No agitation. Compliant with medication. Denied any hallucination. VITAL SIGNS Temperature 98.4, heart rate 88, respiratory rate 18, blood pressure 97/65, and oxygen saturation 100%. REVIEW OF SYSTEMS Complete review of systems is unremarkable. MENTAL STATUS EXAMINATION General appearance; the patient dressed casually in hospital attire, lying in a propped up position, made good eye contact, somewhat confused. Attention span and concentration, fair. Speech, slow in volume with long pauses. Oriented in self and place. Mood and affect were labile and flat. Thought process, circumstantial. Thought content, the patient denied any thoughts of harming self or others or any hallucination, but somewhat guarded. Recent and remote memory, fair. Language, intact. Fund of knowledge, fair. Insight and judgment, fair to slightly impaired. DIAGNOSES Psychiatric: Alcohol use disorder, severe, F10.20 and delirium, F05, resolving. ASSESSMENT/PLAN 1. Supportive psychotherapy and psychoeducation provided to the patient and family. Educated about benefits and side effects of medication and course and prognosis of illness. 2. Advised to continue with current medication. If needed, consider further adjustment of medication. Please feel free to call if any questions, telephone #[phone]. Unit #: [id number] #: [id number] Patient: CARMELA CORRAL Dictated by... Jennifer Hi/jean-pierre TD: 03/22/2017 19:28 JOB #: [id number] CONSULTATION REPORT Page 1 of 1 X Maco Kowalski MD X CONSULTATION REPORT
--- NOTE | ~2017-03-17 | EKG ---
PATIENT: CARMELA DEMPSEY UNIT #: [id number] Ventricular Rate: 100 BPM Atrial Rate: 100 BPM P-R Interval: 186 ms QRS Duration: 62 ms Q-T Interval: 376 ms QTC Calculation(Bezet): 485 ms P [place]: 39 degrees Calculated R [place]: -16 degrees Calculated T [place]: -11 degrees Diagnosis Line: Sinus rhythm with Premature atrial complexes Diagnosis Line: Low voltage QRS Diagnosis Line: Septal infarct , age undetermined Diagnosis Line: Abnormal ECG Diagnosis Line: When compared with ECG of 20-MAR-2017 07:59, Diagnosis Line: (unconfirmed) Diagnosis Line: Fusion complexes are now Present Diagnosis Line: Possible Septal infarct is now Present Diagnosis Line: Confirmed by LORI GRANT MD ([id number]) on 03/25/2017 Diagnosis Line: 7:56:41 AM INTERPRETING MD: JUANITA HAYWOOD
--- NOTE | ~2017-03-17 | A ---
[facility] DATE: 03/27/17 Patient: CARMELA DEMPSEY Physician: RONAK Address: [address] [facility] Room/Bed: [address] [place] [address], Zip: [place] [address] Admit Date: 03/17/17 Date of : [birth year] Height: 5 7 Weight: 194 88 NUTRITIONAL ASSESSMENT: REASON: Length of stay Admitting dx: 71 y/o male admitted with new seizures, respiratory distress, humerus fx PMH: PE, DVT, COPD, HLD, ETOH abuse, memory loss, appy, 1 ppd smoker Anthropometrics: Ht: 67", admission wt: 202 lbs, current wt: 194 lbs, BMI: 31 (stage I obese; based on admission wt) Past weights: 194-212 lbs (2017) Labs: glucose 117, POC 115-142, A1C 5.5 (WNL on 09/03/16), lipid panel WNL Meds: Therapeutic formula, os-tia 500 + D, milk of mg, low SSI, prn zofran I/O & Bowel function: Last BM documented 03/22 Skin Integrity: no significant issues, gereralized edema noted Assessment: Chart reviewed, events noted. RD assessing due to length of stay. See admitting dx and PMH as stated above. Pt is on 5L nasal cannula, POD #2 R shoulder arthroplasty. Pt drinks 8 beers + 1 pint whiskey daily, Dr. Kowalski assessed 03/25 due to increased memory loss, confusion and depression. Pt with flat affect, withdrawn. Working with physical therapy at this time. Pt himself is not appropriate for RD interview. He is currently on a consistent carb diet with Ensure ordered TID, previously on healthy heart diet. He has no hx of DM, A1C normal in August of this year and glucose is currently well controlled. Scored 0 points on the malnutrition risk screen, weight appears stable per past weight history. Pt is stage I obese. [facility] [employer] just evaluated the pt due to continue coughing during meals, however they recommended to continue regular texture with thin liquids. Per RN pt did well with breakfast and is taking oral pills ok. May D/C to [facility] soon. See RD recs below. Dx: No nutrition diagnosis Intervention: Regular diet, continue Ensure Monitoring, Evaluation and Goals: PO intake > 50% of meals. Recommendations: [facility] DATE: 03/27/17 Patient: CARMELA DEMPSEY Physician: RONAK Address: [address] [facility] Room/Bed: [address] [place] [address], Zip: [place] [address] Admit Date: 03/17/17 Date of : [birth year] Height: 5 7 Weight: 194 88 1. Please change diet to regular. Consistent carb diet not appropriate for this patient. Continue chocolate Ensure BID. Appreciate staff/family to assist with meals as needed. 2. Continue vitamins as ordered. RD will follow Mild nutrition risk Respectfully, Lisa Wiseman, PARESH, LD [facility] cc: client file
--- NOTE | ~2017-03-17 | EKG ---
PATIENT: CARMELA DEMPSEY UNIT #: [id number] Ventricular Rate: 101 BPM Atrial Rate: 101 BPM P-R Interval: 170 ms QRS Duration: 74 ms Q-T Interval: 370 ms QTC Calculation(Bezet): 479 ms P Aline: 34 degrees Calculated R Aline: -14 degrees Calculated T Aline: 0 degrees Diagnosis Line: Sinus tachycardia with Premature atrial complexes Diagnosis Line: Low voltage QRS Diagnosis Line: Borderline ECG Diagnosis Line: When compared with ECG of 19-MAR-2017 06:19, Diagnosis Line: Premature atrial complexes are now Present Diagnosis Line: Criteria for Septal infarct are no longer Present Diagnosis Line: Confirmed by LORI GRANT MD ([id number]) on 03/25/2017 Diagnosis Line: 7:31:03 AM INTERPRETING MD: JUANITA HAYWOOD
--- NOTE | ~2017-03-17 | DS ---
Unit #: [id number] #: [id number] Patient: CARMELA DEMPSEY [address] [place] [address] [id number] I MR#: [id number] NAME: CARMELA DEMPSEY ROOM: 448 Age: Sex: M Admission Date: 03/17/2017 : 1945 Discharge Date: Attending Physician: Kenia Ramirez M.D. Primary Care Physician: Generic Doctor Not In System DISCHARGE SUMMARY ADDENDUM To discharge meds, I forgot RisperDAL 0.25 mg p.o. q.h.s. p.r.n. for insomnia or agitation. Dictated by... Jennifer Summers/prince TD: 03/27/2017 09:32 JOB #: [id number] DISCHARGE SUMMARY Page 1 of 1 X Kenia Ramirez MD X DISCHARGE SUMMARY
--- NOTE | ~2017-03-17 | CR229 ---
[facility] A Service of [facility] & [facility] RADIOLOGY TEXT RESULTS PATIENT: CARMELA DEMPSEY LOCATION: [facility] 341- : [birth year] UNIT #: [id number] AGE: [address]: Kenia Ramirez MD SEX: M ORDER DR: [id number] [facility] [address]. [place], [place] [address] [id number] I MR#: [id number] #: [id number] NAME: CARMELA DEMPSEY : 1945 SEX: M STUDY DATE/TIME: 03/24/2017 13:29 UNIT: [address] ROOM: [facility] STUDY DESCRIPTION: CR Shoulder Min 2 View Lt Attending Physician: Kenia Ramirez M.D. Ordering Physician: Kenia Ramirez M.D. Primary Care Physician: Generic Doctor MEDICAL IMAGING REPORT This report is preliminary unless electronic signature is present EXAM Left shoulder series. HISTORY Pain. Left shoulder pain. Fractured right shoulder, now complaining of left shoulder pain. Prior fall. REPORT Internal/external rotation views of the left shoulder are presented. COMPARISON No prior dedicated left shoulder imaging. FINDINGS The study is degraded by clothing artifact overlying relevant anatomy. There is no traumatic malalignment. There is a subtle linear lucency involving the anatomic neck of the left humerus. It is best seen along the lateral aspect of the humerus. It appears to represent a fracture. It is conceivable this is an incomplete fracture, but I would favor a complete nondisplaced fracture. If it would assist in management, this could be further evaluated with left shoulder CT. There are somewhat linear calcific densities superimposed over the medial humeral head and glenoid fossa on the internal rotation view. At least, one of these is seen along the inferomedial aspect of the humeral head/anatomic neck on the external rotation view. These measure up to about 1.5 cm. They are favored to represent fracture fragments. Exact derivation of which is unclear. It is possible they could be coming from the glenoid or the humeral head. Again, this could be clarified with CT if it would assist in management. A transscapular view is also presented. The remainder of visualized scapula is unremarkable. The visualized ribs are intact. Periarticular soft tissues show no acute abnormality. Patchy densities at the left lung base probably atelectatic in nature. [facility] A Service of [facility] RADIOLOGY TEXT RESULTS PATIENT: CARMELA DEMPSEY LOCATION: [facility] 341-01 : [birth year] UNIT #: [id number] AGE: [address]: Kenia Ramirez MD SEX: M ORDER DR: Findings discussed with patient's primary care nurse, Alannah, at the time of this dictation. She indicated that she will contact patient's medical team. Dictated by... Ld Maria M.D. THIS IS AN ELECTRONICALLY VERIFIED REPORT Ld Maria M.D. at 03/24/2017 11:32 PM Jaycee TD: 03/24/2017 18:30 JOB #: [id number] MEDICAL IMAGING REPORT Page 1 of 1 COPY
--- NOTE | ~2017-03-17 | CO ---
Unit #: [id number] #: [id number] Patient: CARMELA CORRAL [id number] [facility] [address] [facility]. [place], [place] [address] [id number] I MR#: [id number] NAME: CARMELA CORRAL ROOM: 341 Age: 71 Sex: M Admission Date: 03/17/2017 : 1945 Attending Physician: Kenia Ramirez M.D. Consultation Date: 03/21/2017 CONSULTATION REPORT REASON FOR CONSULTATION Followup. DISCUSSION Mr. Carmela Corral is a 71-year-old male, seen in room 341, bed 1 on 03/21/2017 at [facility]. The patient was lying comfortably in bed. The patient was not moving his right arm. The patient was diagnosed with fracture of humerus. The patient was able to answer some of the question, but still having some confusion. Received Ativan last night for agitation, but compliant and cooperative. The patient was calm. Vital signs; temperature 99.0, pulse 88, respirations 18, blood pressure 133/84, and oxygen saturation 91%. The patient denied any thoughts of harming self or others, but somewhat guarded and paranoid. REVIEW OF SYSTEMS A complete review of systems is unremarkable except as mentioned above. MENTAL STATUS EXAMINATION General appearance; the patient dressed in hospital attire, lying comfortably in bed in a propped up position, cooperative, somewhat confused. Attention span and concentration, fair to poor. Speech; slow in volume and rate. Oriented in self and place. Mood and affect were labile. Thought process, circumstantial. Thought content; guarded, but denied any thoughts of harming self or others. Recent and remote memory; fair to slightly impaired. Language, fair. Fund of knowledge, fair to slightly impaired. Insight and judgment, impaired. DIAGNOSES Psychiatric: Alcohol use disorder, severe, F10.20; delirium, F05, resolving. ASSESSMENT AND PLAN 1. Supportive psychotherapy and psychoeducation provided to the patient. 2. Advised at this time to continue with current medication. If needed, consider to increase the Risperdal. The patient was started on Risperdal 0.5 mg at bedtime. The patient is also on Librium, plan to gradually taper it off. Please feel free to call if any questions, telephone #[phone]. Dictated by... Jennifer Hi/jean-pierre Unit #: [id number] #: [id number] Patient: CARMELA CORRAL TD: 03/21/2017 21:40 JOB #: [id number] CONSULTATION REPORT Page 1 of 1 X Maco Kowalski MD CONSULTATION REPORT
--- NOTE | ~2017-03-17 | CO ---
Unit #: [id number] #: [id number] Patient: CARMELA CORRAL [id number] [facility] [address]. [place], [place] [address] [id number] I MR#: [id number] NAME: CARMELA CORRAL ROOM: 448 Age: 71 Sex: M Admission Date: 03/17/2017 : 1945 Attending Physician: Kenia Ramirez M.D. Primary Care Physician: Generic Doctor Not In System Consultation Date: 03/24/2017 CONSULTATION REPORT REASON FOR CONSULTATION Followup with patient. Mr. Carmela Corral is a 71-year-old male seen on 03/24/17 in room 341 bed-1 at [facility]. Patient seemed very sad, depressed, withdrawn, flat affect, having trouble with memory, concentration, focusing. Poor memory, confusion but no agitation, tolerating medication fairly well, sleeping good. Patient's cath test was normal. The patient will be going for his surgery for a broken humerus. The patient denied any complaints. He denied any suicidal or homicidal ideation. Patient's vital signs - 98.0, 92, 20, 112/61. Oxygen saturation 95%. MENTAL STATUS EXAMINATION GENERAL APPEARANCE: Dressed casually in hospital attire. Attention span and concentration poor. Speech slow in volume with long pauses. Orientation in self and place. Mood and affect labile. Thought process circumstantial. Thought content - guarded, but denied any thoughts of harming self or others. Recent and remote memory poor. Language fair. Fund of knowledge poor. Insight and judgment impaired. DIAGNOSIS PSYCHIATRIC: 1. Alcohol use disorder, severe - F10.20. 2. Delirium - F05, rule out major neurocognitive disorder due to alcohol abuse/Alzheimer disease without behavioral disturbances - F02.80. ASSESSMENT/PLAN 1. Supportive psychotherapy and psychoeducation provided to patient and family. 2. Educated about benefits and side effects of medications and course and prognosis of illness. 3. Advised to continue with current medication with the plan to consider SSRI. Suggest Lexapro 10 mg at bedtime. We will continue to follow. Please feel free to call if any questions. Telephone number [phone]. Dictated by... Maco Kowalski M.D. HEBERT/rocio Unit #: [id number] #: [id number] Patient: CARMELA CORRAL TD: 03/26/2017 06:52 JOB #: [id number] CONSULTATION REPORT Page 1 of 1 X Maco Kowalski MD CONSULTATION REPORT
--- NOTE | ~2017-03-17 | CO ---
Unit #: [id number] #: [id number] Patient: CARMELA DEMPSEY [id number] [facility]. [address] [place], [place] [address] [id number] I MR#: [id number] NAME: CARMELA DEMPSEY ROOM: [facility] Age: 71 Sex: M Admission Date: 03/17/2017 : 1945 Attending Physician: Kenia Ramirez M.D. Primary Care Physician: Omid Doctor Not In System Consultation Date: 03/18/2017 CONSULTATION REPORT REASON FOR CONSULTATION Elevated troponin. HISTORY OF PRESENT ILLNESS This is a 71-year-old white male who was seen by our group in 08/2016 where he had a pulmonary embolism and underwent EKOS procedure per Dr. Eisenberg. After discharge home the patient was only on Coumadin for a month and a half before taking herself off according to the daughter. The patient is unable to provide a history of because he was recently extubated. According to the daughter he was at his brother's house yesterday and began to seize. He was brought into the emergency room for evaluation where he was intubated. Initial electrocardiogram found the patient to be in atrial fibrillation with rapid ventricular response, but he converted to normal sinus rhythm spontaneously. He had elevated ammonia level of 329. His creatinine was also elevated at 1.9 with CK total of 906. Initial troponin was negative; however, has now peaked at 1.28. The daughter states the patient is a heavy alcohol drinker and despite her concern of him quitting or seeking help, he continues to drink. His alcohol level on admission was less than 5. PAST MEDICAL HISTORY 1. Pulmonary embolism, 08/2016. 2. Status post EKOS, noncompliant with Coumadin. 3. Prior DVT. 4. Hyperlipidemia. 5. COPD. 6. ETOH abuse. 7. Active smoker. PAST SURGICAL HISTORY 1. Appendectomy. 2. Varicose vein stripping. SOCIAL HISTORY The patient is single and lives at home alone. He is retired. He smokes a pack of cigarettes a day. Drinks a large container of whiskey, along with beer on a daily basis. There is no report of illicit drug use. FAMILY HISTORY Negative for coronary artery disease. ALLERGIES Penicillin. Unit #: [id number] #: [id number] Patient: CARMELA DEMPSEY HOME MEDICATIONS The patient is not taking according to the daughter. 1. Furosemide 20 mg daily. 2. Coumadin 5 mg daily. 3. Aspirin 81 mg daily. REVIEW OF SYSTEMS Unable to obtain because the patient is currently mildly sedated. PHYSICAL EXAMINATION VITAL SIGNS: Blood pressure 111/73, heart rate 90, temperature 98.8, BMI 31. GENERAL: This is a 71-year-old well developed white male who is in no acute respiratory distress. NEUROLOGIC: His eyes are closed. Opens briefly to name but falls asleep. There is no obvious focal weaknesses. NECK: Trachea is midline. No thyromegaly or lymphadenopathy. No jugular venous distention. HEART: S1 and S2. Heart sounds are normal. No murmurs. No rubs or clicks. Regular rate and rhythm. LUNGS: With diminished breath sounds with poor inspiratory effort both lung bases. ABDOMEN: Soft, nontender, with bowel sounds are present. No organomegaly. EXTREMITIES: Pedal pulses are palpable with trace leg edema. SKIN: Warm and dry. DIAGNOSTIC STUDIES LABORATORY STUDIES: Glucose 175, BUN 13, creatinine 1.3, sodium 139, potassium 3.7, magnesium 2.2. CK total 1184. MB 4.3, MB index 3.7. Troponin less than 0.05, 0.56, and 1.28. Ammonia 16. Lactic acid 3.1. Alcohol less than 5. White count 16.0, hemoglobin 11.9, hematocrit 35.1, platelet count 203. IMAGING STUDIES: Chest x-ray shows a left lower lobe infiltrate or atelectasis. CARDIOVASCULAR STUDIES: Presenting electrocardiogram - atrial fibrillation with rapid ventricular response with a rate of [address] depression in the anterior leads. Repeat electrocardiogram shows sinus tachycardia, rate of 106 BPM with resolution of ST depression. Low voltage QRS. IMPRESSION 1. New onset seizures. 2. Acute hypercapnic, hypoxic respiratory failure. 3. Acte non ST elevation myocardial infarction with peak troponin of 1.28. 4. ETOH abuse. 5. Elevated pneumonia. 6. History of pulmonary embolism, 08/2016. PLAN 1. Cardiology was consulted for elevated troponin. The patient has been started on a heparin drip. Will add aspirin. 2. Slow heart rate with metoprolol 12.5 mg q.6 hours. 3. Start the patient on [facility] protocol for ETOH abuse. Unit #: [id number] #: [id number] Patient: CARMELA DEMPSEY 4. This has been discussed with the daughter about the patient's multiple issues including noncompliance. The patient will need a cardiac catheterization when he is stable to evaluate his coronary anatomy. Will discuss with patient once he is able. 5. Repeat troponin and electrocardiogram. 6. Lipid profile will be obtained. Will add lipid lower agent once the patient is able to take oral. 7. Will follow the patient with you. Thank you for allowing us to assist in this patient's care. Dictated by... Stuart Ngo A.P.R.N. for Jennifer Phillips/aquilino TD: 03/19/2017 09:23 JOB #: [id number] CONSULTATION REPORT Page 1 of 1 X Stuart Ngo APRN X CONSULTATION REPORT
--- NOTE | ~2017-03-17 | CO ---
Unit #: [id number] #: [id number] Patient: CARMELA CORRAL [id number] [address] [place], [place] [address] [id number] I MR#: [id number] NAME: CARMELA CORRAL ROOM: 341 Age: 71 Sex: M Admission Date: 03/17/2017 : 1945 Attending Physician: Kenia Ramirez M.D. Consultation Date: 03/20/2017 CONSULTATION REPORT REASON FOR CONSULTATION Followup. DISCUSSION Mr. Carmela Corral is a 71-year-old male, seen in room 341 bed 1 on 03/20/2017. The patient was transferred from ICU to unit 3A. The patient was admitted with respiratory failure after a seizure, history of alcohol abuse, still having alcohol withdrawal, mood lability, but no agitation. The patient was alert, oriented in place and person. Still somewhat anxious, nervous, confused. The patient's vital signs; temperature 98.3, pulse 86, respirations 18, blood pressure 116/75, oxygen saturations 95%. The patient denied any suicidal or homicidal ideation. Denied any auditory or visual hallucination. REVIEW OF SYSTEMS Review of systems is unremarkable except as mentioned above. MENTAL STATUS EXAMINATION General appearance, the patient dressed in hospital attire, lying comfortably in bed. The patient's daughter was at the bedside. Attention span and concentration, poor. Speech, slow in volume and rate. Oriented in place and person. Mood and affect were sad, dysphoric, flat. Thought process, circumstantial. Thought content, the patient was somewhat guarded, but denied any suicidal or homicidal ideation. Recent and remote memory, fair to slightly impaired. Language, fair. Fund of knowledge, fair to slightly impaired. Insight and judgment, fair to slightly impaired. DIAGNOSES Psychiatric: Alcohol use disorder, severe, F10.20; major depressive disorder, recurrent, severe, F33.2; delirium, F05, improving. ASSESSMENT AND PLAN 1. Supportive psychotherapy and psychoeducation provided to patient and family. 2. Educated about benefits and side effects of medication and course and prognosis of illness. 3. Advised to continue with current medication. If needed, consider further adjustment of medication with a plan to transfer the patient to subacute rehab and also after that follow up in [facility]-IOP program. In the meantime, we will continue to follow. Please feel free to call if any questions telephone #[phone]. Unit #: [id number] #: [id number] Patient: TURKMENCARMELA byJennifer De Dios/jean-pierre TD: 03/21/2017 13:14 JOB #: [id number] CONSULTATION REPORT Page 1 of 1 X Maco Kowalski MD X CONSULTATION REPORT
--- NOTE | ~2017-03-17 | EE ---
Unit #: [id number] #: [id number] Patient: CARMELA DEMPSEY [id number] [address] [address] [id number] [place] MR#: [id number] NAME: CARMELA DEMPSEY : 1945 SEX: M STUDY DATE/TIME: 03/18/2017 UNIT: C3A PCU ROOM: [facility] STUDY DESCRIPTION: EEG Attending Physician: Kenia Ramirez M.D. Referring Physician: Kenia Ramirez M.D. Primary Care Physician: Generic Doctor Not In System NEURODIAGNOSTICS REPORT PROCEDURE PERFORMED EEG. REASON FOR STUDY Seizures. EEG DESCRIPTION This is an inpatient, portable, digitally recorded, multi-montage, adult EEG with leads placed according to the International 10-20 system. Hyperventilation and photic stimulation were not done. PROCEDURE REPORT This EEG shows significant beta and muscle artifact. I did see some spindles toward the end but, otherwise, mostly drowsy EEG. No good alpha rhythm. Maximum was about 7 Hz to 7.5 Hz, but, importantly, nothing suggesting seizure. Nothing suggesting interictal discharges. No clinical events were seen. Hyperventilation and photic stimulation were not done. IMPRESSION Abnormal EEG, showing diffuse slowing, which is indicative of encephalopathy, and there is beta artifact, which is likely medication effect. Delirium can present like this. Nothing suggesting active seizure or status. Clinical correlation is recommended. Dictated by... Jennifer Martin/zaida TD: 03/20/2017 08:14 JOB #: [id number] Unit #: [id number] #: [id number] Patient: CARMELA DEMPSEY NEURODIAGNOSTICS REPORT Page 1 of 1 X Zeyad Pate MD NEURODIAGNOSTICS REPORT
--- NOTE | ~2017-03-17 | CT57 ---
[facility] A Service of [facility] & [facility] RADIOLOGY TEXT RESULTS PATIENT: CARMELA DEMPSEY LOCATION: [facility] 341- : [birth year] UNIT #: [id number] AGE: [address]: Kenia Ramirez MD SEX: M ORDER DR: [id number] [facility] [address] [facility]. [place], [place] [address] [id number] I MR#: [id number] Acc #: [id number] NAME: CARMELA DEMPSEY : 1945 SEX: M STUDY DATE/TIME: 03/21/2017 13:23 [facility] ROOM: 341 STUDY DESCRIPTION: CT Chest Wo Cont Attending Physician: Kenia Ramirez M.D. Ordering Physician: Christina Marshall M.D. Primary Care Physician: Generic Doctor Not In System MEDICAL IMAGING REPORT This report is preliminary unless electronic signature is present EXAM Chest CT no contrast, 03/21/2017. INDICATIONS Shortness of air, onset of symptoms on March 17, respiratory failure. Right humerus fracture. Clinical concern for aspiration pneumonia. TECHNIQUE Noncontrast CT of the chest was performed. This CT exam was performed with one or more of the following radiation dose reduction techniques: automatic exposure control, adjustment of mA and/or kV according to patient size, and iterative reconstruction. COMPARISON Correlation is made with chest x-ray 03/17/2017. FINDINGS There is a fracture of the right humerus. There are bilateral effusions, small in size. There is consolidation in both lower lobes, left greater than right, suspicious for pneumonia particularly on the left. There is atelectasis or pneumonia involving the inferior lingula. No pneumothorax. Probable patchy atelectasis or less likely faint infiltrates in the upper lobe on the left. Follow up to resolution after appropriate therapy is recommended. No adenopathy. No pericardial effusion. There is aneurysmal dilatation of the ascending aorta up to 4 cm. There is gynecomastia. Upper abdomen demonstrates probable sequela of chronic pancreatitis. There is a compression fracture deformity of T12 involving the mid aspect the vertebral body, height loss estimate on the order about 40% to 50%. This is likely subacute and should be correlated with physical exam. This is new compared to the prior chest CT of 09/03/2016. There is also a chronic STS. [facility] A Service of [facility] RADIOLOGY TEXT RESULTS PATIENT: CARMELA DEMPSEY LOCATION: [facility] 341-01 : [birth year] UNIT #: [id number] AGE: [address]: Kenia Ramirez MD SEX: M ORDER DR: right-sided rib fracture. IMPRESSION 1. Small bilateral effusions with probable pneumonia in the lung bases, left greater than right. Patchy ground-glass opacities in the upper lobe and lingula as well. Follow up to resolution after appropriate therapy recommended. 2. No pneumothorax. 3. Aneurysmal dilatation of the aorta. 4. There is a fracture of the right humerus. There is a compression fracture of T12, likely acute to subacute. Correlate with patient point tenderness. Dictated by... Maximilian Tracey M.D. THIS IS AN ELECTRONICALLY VERIFIED REPORT Maximilian Tracey M.D. at 03/22/2017 2:22 PM JIMMY/elias TD: 03/22/2017 08:56 JOB #: [id number] MEDICAL IMAGING REPORT Page 1 of 1 COPY
--- NOTE | ~2017-03-17 | CR230 ---
[facility] A Service of [facility] & [facility] RADIOLOGY TEXT RESULTS PATIENT: CARMELA DEMPSEY LOCATION: [facility] 448-01 : [birth year] UNIT #: [id number] AGE: [address]: Kenia Ramirez MD SEX: M ORDER DR: [id number] [facility] [address] [facility]. [place], [place] [address] [id number] I MR#: [id number] Acc #: [id number] NAME: CARMELA DEMPSEY : 1945 SEX: M STUDY DATE/TIME: 03/25/2017 17:27 UNIT: [facility] ROOM: [facility] STUDY DESCRIPTION: CR Shoulder Min 2 View Rt Attending Physician: Kenia Ramirez M.D. Ordering Physician: Ed Doctor [id number] [facility] Primary Care Physician: Generic Doctor Not In System MEDICAL IMAGING REPORT This report is preliminary unless electronic signature is present EXAM Right shoulder 2 views HISTORY Postop shoulder surgery. Shoulder fracture and pain. Surgery today. Fracture 5 days ago. FINDINGS 2 views of the right shoulder demonstrates right shoulder arthroplasty components in satisfactory position. Fracture of the lateral margin of the surgical neck of the humerus with 2 mm separation of the fracture fragments. This corresponds to a fracture, previously noted on 03/19/2017. Probable postoperative soft tissue gas about the shoulder. Surgical drain overlies the shoulder. Dictated by... Eder Hui M.D. THIS IS AN ELECTRONICALLY VERIFIED REPORT Eder Hui M.D. at 03/26/2017 4:29 PM DFL/to TD: 03/25/2017 18:51 JOB #: [id number] MEDICAL IMAGING REPORT Page 1 of 1 COPY
--- NOTE | ~2017-03-17 | CR230 ---
[facility] A Service of [facility] & [facility] RADIOLOGY TEXT RESULTS PATIENT: CARMELA DEMPSEY LOCATION: [facility] 341- : [birth year] UNIT #: [id number] AGE: [address]: Kenia Ramirez MD SEX: M ORDER DR: [id number] [facility] [address] [place], [place] [address] [id number] I MR#: [id number] Acc #: [id number] NAME: CARMELA DEMPSEY : 1945 SEX: M STUDY DATE/TIME: 03/19/2017 15:16 UNIT: [address] ROOM: [facility] STUDY DESCRIPTION: CR Shoulder Min 2 View Rt Attending Physician: Kenia Ramirez M.D. Ordering Physician: Kenia Ramirez M.D. Primary Care Physician: Generic Doctor Not In System MEDICAL IMAGING REPORT This report is preliminary unless electronic signature is present EXAM Right shoulder INDICATIONS Right shoulder pain for 1 day. Seizure. FINDINGS 2 views of the right shoulder in internal-external rotation. There is a transverse fracture through the surgical neck of the humerus. The humeral head is rotated. Articulation with the glenoid appears to remain intact. IMPRESSION Transverse fracture of the proximal humerus. There appears to be rotation of the humeral head. Dictated by... Michael Randolph M.D. THIS IS AN ELECTRONICALLY VERIFIED REPORT Michael Randolph M.D. at 03/19/2017 8:10 PM RPKd/jacquelyn TD: 03/19/2017 20:00 JOB #: [id number] MEDICAL IMAGING REPORT Page 1 of 1 COPY
--- NOTE | ~2017-03-17 | CT130 ---
[facility] A Service of [facility] & [facility] RADIOLOGY TEXT RESULTS PATIENT: CARMELA DEMPSEY LOCATION: [facility] 341- : [birth year] UNIT #: [id number] AGE: [address]: Kenia Ramirez MD SEX: M ORDER DR: [id number] [id number] [facility] [place], [place] [address] [id number] I MR#: [id number] Acc #: [id number] NAME: CARMELA DEMPSEY : 1945 SEX: M STUDY DATE/TIME: 03/21/2017 16:13 [facility]: [facility] STUDY DESCRIPTION: CT Upper Ext Rt Wo Cont Attending Physician: Kenia Ramirez M.D. Ordering Physician: Nestor Ferreira M.D. Primary Care Physician: René Not Listed MEDICAL IMAGING REPORT This report is preliminary unless electronic signature is present EXAM CT right upper extremity without contrast. HISTORY 71-year-old male with a right humeral fracture following a seizure, 03/17/2017. COMPARISON Right shoulder films 03/19/2017. TECHNIQUE Thin section axial images performed through the right shoulder with multiplanar reconstructed images reviewed at a workstation. This CT exam was performed with one or more of the following radiation dose reduction techniques: automatic exposure control, adjustment of mA and/or kV according to patient size, and iterative reconstruction. FINDINGS Examination demonstrates a comminuted fracture of the proximal humerus. Predominant fracture is a transverse fracture through the surgical neck of the humerus with coronal plane fracture extending through the greater tuberosity. The humeral head component of the fracture is displaced and dislocated posteriorly, such that there is no normal articulating surface of the humeral head with the glenoid. Fragment is displaced posteriorly at least 3 cm. There is mild comminution of the greater tuberosity fragment. The humeral shaft fragment is displaced anteriorly with mild comminution along the fracture line. Humeral head articular surface appears relatively intact but again is dislocated. Lesser tuberosity remains intact with the humeral shaft fragment. The scapula remains intact to include the glenoid. Clavicle and AC joint unremarkable. [facility] A Service of [facility] & [facility] RADIOLOGY TEXT RESULTS PATIENT: CARMELA DEMPSEY LOCATION: A 341-01 : [birth year] UNIT #: [id number] AGE: [address]: Kenia Ramirez MD SEX: M ORDER DR: Moderate amount of soft tissue swelling and edema about the shoulder with focal thickening of the posterior deltoid which may represent a focal hematoma. Small joint effusion. Minimal dependent atelectasis right posterior lung. IMPRESSION Moderate to severely comminuted proximal humeral fracture with complete dislocation of the humeral head fragment posteriorly with posterior rotation of the fragment with anterior dislocation of the anterior humeral fragment and mild comminution of the greater tuberosity and surgical neck fracture fragments. Humeral head articular surface, however, remains relatively intact. Please see above for details. Dictated by... Soco Grissom M.D. THIS IS AN ELECTRONICALLY VERIFIED REPORT Soco Grissom M.D. at 03/24/2017 10:15 AM BREE/neeraj TD: 03/23/2017 13:40 JOB #: [id number] MEDICAL IMAGING REPORT Page 1 of 1 COPY
[~2017-03-17 19:07] MED LIST: COMBIVENT U/D3 M1 INH; ELIQUIS PO; ELIQUIS5 MG PO; LIPITOR40 MG PO; MEGA MULTIVITA1 EACH PO; MULTI VITAMIN1 EACH PO; NO MEDICATIONS; OXYGEN
[2017-03-17 19:44] LABS: ARTERIAL BLD GAS O2 SATURATION 95.1 % (90.0-100.0); ARTERIAL BLOOD GAS CARBOXY HB 0.6 %sat (0.0-9.0); ARTERIAL BLOOD GAS HCO3 8.6 mmol/L; ARTERIAL BLOOD GAS MET HB 0.8 %sat (0.0-2.0); ARTERIAL BLOOD GAS PCO2 42.2 mmHg (35.0-45.0)
[2017-03-17 19:45] LABS: ARTERIAL BLOOD GAS ALLEN TEST NORMAL; ARTERIAL BLOOD GAS ART SITE RIGHT RADIAL; ARTERIAL BLOOD GAS DELIVERY VENT; ARTERIAL BLOOD GAS VENT MODE AC; ARTERIAL BLOOD GAS pH 6.918 (7.350-7.450); ARTERIAL DRAW? YES
[2017-03-17 20:12] LABS: POC - CKMB 8.5 ng/mL (0.0-7.9); POC - TROPONIN <0.05 ng/mL (<=0.05)
[2017-03-17 20:14] LABS: BASOPHIL# 0.3 X10e3 (0-0.3); BASOPHIL% 1.4 % (0-2.5); EOSINOPHIL# 0.1 X10e3 (0-0.7); EOSINOPHIL% 0.8 % (0.0-7.0); HEMATOCRIT 43.8 % (38.0-50.0); HEMOGLOBIN 14.2 gm/dL (13.0-16.0); LYMPHOCYTE# 3.2 X10e3 (1.0-3.5); LYMPHOCYTE% 17.8 % (17.0-45.0); MEAN CELL VOLUME 106.9 FL (83-96); MEAN CORPUSCULAR HEMOGLOBIN 34.6 PG (28-34); MEAN CORPUSCULAR HGB CONC 32.3 g/dL (30-36); MEAN PLATELET VOLUME 8.1 FL (6.5-11.5); MONOCYTE# 0.8 X10e3 (0-1.0); MONOCYTE% 4.6 % (3.0-12.0); NEUTROPHIL# 13.7 X10e3 (1.5-7.1); NEUTROPHIL% 75.4 % (40-75); PLATELET COUNT 316 X10e3 (140-420); RED BLOOD COUNT 4.09 X10e (3.90-5.60); RED CELL DISTRIBUTION WIDTH 14.8 % (11.0-15.5); WHITE BLOOD COUNT 18.1 X10e3 (4.0-10.5)
[2017-03-17 20:15] LABS: INR 1.1; PARTIAL THROMBOPLASTIN TIME 30.5 SECONDS (23.5-31.3); PROTHROMBIN TIME (PATIENT) 11.5 SECONDS (10.0-11.7)
[2017-03-17 20:29] LABS: DIFF IND YES
[2017-03-17 20:32] LABS: ANISOCYTOSIS SL; PLATELET ESTIMATE NORMAL (NORMAL); POIKILOCYTOSIS SL
[2017-03-17 21:07] LABS: URINE SOURCE CLEAN CATCH
[2017-03-17 21:08] LABS: ACETAMINOPHEN <10 ug/mL; ALBUMIN SERUM 3.8 g/dL (3.5-5.0); ALCOHOL BLOOD <5 mg/dL (0); ALKALINE PHOSPHATASE 92 U/L (32-92); ALT (SGPT) 29 U/L (10-40); AST (SGOT) 50 U/L (10-42); BILIRUBIN, DIRECT 0.2 mg/dL (0.0-0.2); BILIRUBIN,INDIRECT 0.5 mg/dL (0.0-0.9); BILIRUBIN,TOTAL 0.7 mg/dL (0.2-2.0); BLOOD UREA NITROGEN 11 mg/dL (9-23); BUN/CREATININE RATIO 5.78; CALCIUM SERUM 8.9 mg/dL (8.4-10.2); CARBON DIOXIDE 9 mmol/L (22-31); CHLORIDE 96 mmol/L (100-111); CREATININE SERUM 1.9 mg/dL (0.6-1.4); GLOM FILT RATE Estimated 35.2 mL/min (>60); GLUCOSE FASTING 311 mg/dL (70-110); POTASSIUM 3.5 mmol/L (3.5-5.1); PROTEIN TOTAL SERUM 7.3 g/dL (6.0-8.3); SALICYLATE <4.0 mg/dL; SODIUM 137 mmol/L (135-145)
[2017-03-17 21:11] LABS: URINE APPEARANCE CLOUDY; URINE BILIRUBIN NEG (NEG); URINE BLOOD 3+ (NEG); URINE COLOR YELLOW; URINE GLUCOSE 100 MG/DL (NEG); URINE KETONE 1+ (NEG); URINE LEUKOCYTE ESTERASE NEG (NEG); URINE NITRATE NEG (NEG); URINE PROTEIN 3+ (NEG); URINE SPECIFIC GRAVITY 1.018 (1.003-1.035); URINE UROBILINOGEN 0.2 MG/DL (NEG)
[2017-03-17 21:14] LABS: CULTURE INDICATED? YES; URINE BACTERIA AUWI NEG (NEGATIVE); URINE SQUAMOUS EPITHELIAL CELL FEW /[HPF]
[2017-03-17] MEDS ORDERED: LASIX20 MG PO (21:15)
[2017-03-17] MEDS ORDERED: ASPIRIN81 MG PO (21:16)
[2017-03-17] MEDS ORDERED: COUMADIN5 MG PO (21:16)
[2017-03-17 21:22] LABS: AMPHETAMINE NEG (NEG); BARBITURATES NEG (NEG); BENZODIAZEPINES POS (NEG); COCAINE NEG (NEG); MARIJUANA NEG (NEG); OPIATES NEG (NEG); TRICYCLIC ANTIDEPRESSANTS NEG (NEG); U METHADONE NEG (NEG)
[2017-03-17 22:13] LABS: ARTERIAL BLD GAS O2 SATURATION 98.6 % (90.0-100.0); ARTERIAL BLOOD GAS CARBOXY HB 0.4 %sat (0.0-9.0); ARTERIAL BLOOD GAS HCO3 21.1 mmol/L; ARTERIAL BLOOD GAS MET HB 0.8 %sat (0.0-2.0); ARTERIAL BLOOD GAS PCO2 36.6 mmHg (35.0-45.0)
[2017-03-17 22:14] LABS: ARTERIAL BLOOD GAS ALLEN TEST NORMAL; ARTERIAL BLOOD GAS ART SITE RIGHT RADIAL; ARTERIAL BLOOD GAS DELIVERY VENT; ARTERIAL BLOOD GAS VENT MODE AC; ARTERIAL DRAW? YES
[2017-03-18 00:08] LABS: CALCIUM SERUM 7.8 mg/dL (8.4-10.2); CREATININE SERUM 1.2 mg/dL (0.6-1.4); GLOM FILT RATE Estimated 61.3 mL/min (>60); MAGNESIUM 2.2 mg/dL (1.6-3.0); POTASSIUM 3.6 mmol/L (3.5-5.1)
[2017-03-18 00:26] LABS: %MB 3.9 % (0.0-4.0); MB 34.9 ng/ml
[2017-03-18 04:12] LABS: BASOPHIL% 0.3 % (0-2.5); HEMATOCRIT 35.1 % (38.0-50.0); HEMOGLOBIN 11.9 gm/dL (13.0-16.0); LYMPHOCYTE# 0.8 X10e3 (1.0-3.5); LYMPHOCYTE% 5.1 % (17.0-45.0); MEAN CELL VOLUME 101.7 FL (83-96); MEAN CORPUSCULAR HEMOGLOBIN 34.5 PG (28-34); MEAN CORPUSCULAR HGB CONC 33.9 g/dL (30-36); MEAN PLATELET VOLUME 7.6 FL (6.5-11.5); MONOCYTE# 1.5 X10e3 (0-1.0); MONOCYTE% 9.2 % (3.0-12.0); NEUTROPHIL# 13.7 X10e3 (1.5-7.1); NEUTROPHIL% 85.4 % (40-75); PLATELET COUNT 203 X10e3 (140-420); RED BLOOD COUNT 3.45 X10e (3.90-5.60)
[2017-03-18 04:13] LABS: DIFF IND NO
[2017-03-18 04:30] LABS: ARTERIAL BLOOD GAS CARBOXY HB 0.2 %sat (0.0-9.0); ARTERIAL BLOOD GAS HCO3 26.7 mmol/L; ARTERIAL BLOOD GAS MET HB 0.8 %sat (0.0-2.0); ARTERIAL BLOOD GAS PCO2 33.9 mmHg (35.0-45.0); ARTERIAL BLOOD GAS pH 7.504 (7.350-7.450)
[2017-03-18 04:38] LABS: ALBUMIN SERUM 2.9 g/dL (3.5-5.0); BILIRUBIN,TOTAL 1.3 mg/dL (0.2-2.0); CALCIUM SERUM 7.6 mg/dL (8.4-10.2); CREATININE SERUM 1.3 mg/dL (0.6-1.4); GLOM FILT RATE Estimated 55.7 mL/min (>60); POTASSIUM 3.7 mmol/L (3.5-5.1); PROTEIN TOTAL SERUM 5.4 g/dL (6.0-8.3)
[2017-03-18 04:56] LABS: %MB 3.7 % (0.0-4.0); MB 43.3 ng/ml
[2017-03-18 05:06] LABS: ARTERIAL BLOOD GAS ALLEN TEST NORMAL; ARTERIAL BLOOD GAS ART SITE LEFT RADIAL; ARTERIAL BLOOD GAS VENT MODE AC; ARTERIAL DRAW? YES
[2017-03-18 14:52] LABS: CHOLESTEROL 142 mg/dL (0-200); HDL CHOLESTEROL 68 mg/dL (29-75); LDL CHOLESTEROL 61 mg/dL (-130); LDL/HDL RATIO 1 RATIO (0-4); TRIGLYCERIDES 63 mg/dL (10-160)
[2017-03-19 04:31] LABS: BASOPHIL# 0.1 X10e3 (0-0.3); EOSINOPHIL# 0.1 X10e3 (0-0.7); EOSINOPHIL% 1.1 % (0.0-7.0); HEMATOCRIT 30.7 % (38.0-50.0); HEMOGLOBIN 10.3 gm/dL (13.0-16.0); LYMPHOCYTE# 1.4 X10e3 (1.0-3.5); MEAN CELL VOLUME 101.4 FL (83-96); MEAN CORPUSCULAR HEMOGLOBIN 33.9 PG (28-34); MEAN CORPUSCULAR HGB CONC 33.5 g/dL (30-36); MEAN PLATELET VOLUME 8.4 FL (6.5-11.5); MONOCYTE% 8.5 % (3.0-12.0); NEUTROPHIL% 77.4 % (40-75); PLATELET COUNT 158 X10e3 (140-420); RED BLOOD COUNT 3.03 X10e (3.90-5.60); RED CELL DISTRIBUTION WIDTH 14.3 % (11.0-15.5); WHITE BLOOD COUNT 11.7 X10e3 (4.0-10.5)
[2017-03-19 04:38] LABS: DIFF IND NO
[2017-03-19 05:49] LABS: ALBUMIN SERUM 2.7 g/dL (3.5-5.0); BILIRUBIN, DIRECT 0.2 mg/dL (0.0-0.2); CALCIUM SERUM 7.4 mg/dL (8.4-10.2); GLOM FILT RATE Estimated 76.5 mL/min (>60)
[2017-03-19 05:52] LABS: POTASSIUM 2.9 mmol/L (3.5-5.1)
[2017-03-20 05:28] LABS: BASOPHIL# 0.2 X10e3 (0-0.3); BASOPHIL% 1.2 % (0-2.5); EOSINOPHIL# 0.4 X10e3 (0-0.7); EOSINOPHIL% 3.1 % (0.0-7.0); HEMATOCRIT 29.4 % (38.0-50.0); HEMOGLOBIN 10.3 gm/dL (13.0-16.0); LYMPHOCYTE# 2.1 X10e3 (1.0-3.5); LYMPHOCYTE% 14.9 % (17.0-45.0); MEAN CELL VOLUME 100.7 FL (83-96); MEAN CORPUSCULAR HEMOGLOBIN 35.1 PG (28-34); MEAN CORPUSCULAR HGB CONC 34.9 g/dL (30-36); MEAN PLATELET VOLUME 8.4 FL (6.5-11.5); MONOCYTE# 1.1 X10e3 (0-1.0); NEUTROPHIL# 10.2 X10e3 (1.5-7.1); NEUTROPHIL% 72.8 % (40-75); PLATELET COUNT 163 X10e3 (140-420); RED BLOOD COUNT 2.92 X10e (3.90-5.60); RED CELL DISTRIBUTION WIDTH 14.3 % (11.0-15.5); WHITE BLOOD COUNT 14.1 X10e3 (4.0-10.5)
[2017-03-20 05:34] LABS: DIFF IND NO
[2017-03-20 05:50] LABS: CALCIUM SERUM 7.8 mg/dL (8.4-10.2); CARBON DIOXIDE 28 mmol/L (22-31); CHLORIDE 102 mmol/L (100-111); CREATININE SERUM 0.8 mg/dL (0.6-1.4); GLOM FILT RATE Estimated 91.2 mL/min (>60); GLUCOSE FASTING 117 mg/dL (70-110); MAGNESIUM 1.9 mg/dL (1.6-3.0); POTASSIUM 3.4 mmol/L (3.5-5.1); SODIUM 138 mmol/L (135-145)
[2017-03-20 05:51] LABS: BLOOD UREA NITROGEN <5 mg/dL (9-23); BUN/CREATININE RATIO 6.25
[2017-03-20 06:07] LABS: ALBUMIN SERUM 2.6 g/dL (3.5-5.0); BILIRUBIN, DIRECT 0.3 mg/dL (0.0-0.2); BILIRUBIN,INDIRECT 0.6 mg/dL (0.0-0.9); BILIRUBIN,TOTAL 0.9 mg/dL (0.2-2.0); PROTEIN TOTAL SERUM 4.9 g/dL (6.0-8.3)
[2017-03-20 17:29] LABS: BUN/CREATININE RATIO 8.75; CALCIUM SERUM 7.8 mg/dL (8.4-10.2); CREATININE SERUM 0.8 mg/dL (0.6-1.4); GLOM FILT RATE Estimated 91.2 mL/min (>60); POTASSIUM 3.5 mmol/L (3.5-5.1)
[2017-03-21 04:58] LABS: HEMATOCRIT 28.1 % (38.0-50.0); HEMOGLOBIN 9.7 gm/dL (13.0-16.0); MEAN CELL VOLUME 100.5 FL (83-96); MEAN CORPUSCULAR HEMOGLOBIN 34.7 PG (28-34); MEAN CORPUSCULAR HGB CONC 34.5 g/dL (30-36); MEAN PLATELET VOLUME 7.7 FL (6.5-11.5); RED BLOOD COUNT 2.79 X10e (3.90-5.60); RED CELL DISTRIBUTION WIDTH 13.9 % (11.0-15.5); WHITE BLOOD COUNT 12.4 X10e3 (4.0-10.5)
[2017-03-21 05:48] LABS: BUN/CREATININE RATIO 8.75; CREATININE SERUM 0.8 mg/dL (0.6-1.4); GLOM FILT RATE Estimated 91.2 mL/min (>60); MAGNESIUM 2.1 mg/dL (1.6-3.0); POTASSIUM 3.6 mmol/L (3.5-5.1)
[2017-03-21 14:37] LABS: URINE APPEARANCE CLEAR; URINE BILIRUBIN NEG (NEG); URINE BLOOD 3+ (NEG); URINE COLOR ORANGE; URINE GLUCOSE NEG (NEG); URINE KETONE NEG (NEG); URINE LEUKOCYTE ESTERASE TRACE (NEG); URINE NITRATE NEG (NEG); URINE PH 6.5 (5-8); URINE PROTEIN NEG (NEG); URINE SPECIFIC GRAVITY 1.006 (1.003-1.035); URINE UROBILINOGEN 0.2 MG/DL (NEG)
[2017-03-21 14:41] LABS: URINE BACTERIA AUWI NEG (NEGATIVE); URINE SQUAMOUS EPITHELIAL CELL NONE SEEN /[HPF]; UWBCS1 AUWI 0-2 (0-5)
[2017-03-22 07:32] LABS: MEAN CELL VOLUME 100.8 FL (83-96); MEAN CORPUSCULAR HEMOGLOBIN 34.8 PG (28-34); MEAN CORPUSCULAR HGB CONC 34.6 g/dL (30-36); MEAN PLATELET VOLUME 7.7 FL (6.5-11.5); RED BLOOD COUNT 2.88 X10e (3.90-5.60); RED CELL DISTRIBUTION WIDTH 13.9 % (11.0-15.5); WHITE BLOOD COUNT 11.5 X10e3 (4.0-10.5)
[2017-03-22 08:20] LABS: ALBUMIN SERUM 2.5 g/dL (3.5-5.0); BILIRUBIN, DIRECT 0.2 mg/dL (0.0-0.2); BILIRUBIN,TOTAL 1.5 mg/dL (0.2-2.0); CALCIUM SERUM 8.1 mg/dL (8.4-10.2); CREATININE SERUM 0.8 mg/dL (0.6-1.4); GLOM FILT RATE Estimated 91.2 mL/min (>60); MAGNESIUM 1.9 mg/dL (1.6-3.0); POTASSIUM 3.5 mmol/L (3.5-5.1); PROTEIN TOTAL SERUM 5.2 g/dL (6.0-8.3)
[2017-03-23 07:14] LABS: HEMATOCRIT 29.5 % (38.0-50.0); HEMOGLOBIN 10.2 gm/dL (13.0-16.0); MEAN CELL VOLUME 101.1 FL (83-96); MEAN CORPUSCULAR HGB CONC 34.6 g/dL (30-36); MEAN PLATELET VOLUME 7.8 FL (6.5-11.5); RED BLOOD COUNT 2.92 X10e (3.90-5.60); RED CELL DISTRIBUTION WIDTH 13.9 % (11.0-15.5); WHITE BLOOD COUNT 13.2 X10e3 (4.0-10.5)
[2017-03-23 07:31] LABS: PROTHROMBIN TIME (PATIENT) 10.6 SECONDS (10.0-11.7)
[2017-03-23 07:32] LABS: PARTIAL THROMBOPLASTIN TIME 25.7 SECONDS (23.5-31.3)
[2017-03-23 10:55] LABS: THYROID STIMULATING HORMONE 1.66 uIU/ml (0.34-5.60)
[2017-03-23 10:58] LABS: ALBUMIN SERUM 2.4 g/dL (3.5-5.0); BUN/CREATININE RATIO 12.22; CALCIUM SERUM 8.1 mg/dL (8.4-10.2); CREATININE SERUM 0.9 mg/dL (0.6-1.4); GLOM FILT RATE Estimated 86.8 mL/min (>60); MAGNESIUM 1.9 mg/dL (1.6-3.0); PHOSPHOROUS 3.9 mg/dL (2.5-4.6); POTASSIUM 3.8 mmol/L (3.5-5.1); PROTEIN TOTAL SERUM 5.1 g/dL (6.0-8.3)
[2017-03-23 11:02] LABS: FREE THYROXIN (T4) 0.98 ng/dL (0.58-1.64)
[2017-03-23 11:16] LABS: %MB 0.2 % (0.0-4.0); MB 0.8 ng/ml
[2017-03-24 05:19] LABS: HEMATOCRIT 28.7 % (38.0-50.0); HEMOGLOBIN 9.7 gm/dL (13.0-16.0); MEAN CELL VOLUME 101.1 FL (83-96); MEAN CORPUSCULAR HEMOGLOBIN 34.3 PG (28-34); MEAN CORPUSCULAR HGB CONC 33.9 g/dL (30-36); MEAN PLATELET VOLUME 7.8 FL (6.5-11.5); RED BLOOD COUNT 2.83 X10e (3.90-5.60)
[2017-03-24 06:23] LABS: CALCIUM SERUM 8.2 mg/dL (8.4-10.2); CREATININE SERUM 0.8 mg/dL (0.6-1.4); GLOM FILT RATE Estimated 91.2 mL/min (>60)
[2017-03-25 06:58] LABS: MAGNESIUM 1.9 mg/dL (1.6-3.0); POTASSIUM 4.1 mmol/L (3.5-5.1)
[2017-03-25 15:58] LABS: URINE APPEARANCE HAZY; URINE BILIRUBIN NEG (NEG); URINE BLOOD NEG (NEG); URINE COLOR YELLOW; URINE GLUCOSE NORM (NORM); URINE KETONE NEG (NEG); URINE LEUKOCYTE ESTERASE NEG (NEG); URINE NITRATE NEG (NEG); URINE PROTEIN NEG (NEG); URINE UROBILINOGEN NORM (NORM)
[2017-03-26 04:04] LABS: BASOPHIL# 0.1 X10e3 (0-0.3); BASOPHIL% 1.2 % (0-2.5); DIFF IND YES; EOSINOPHIL# 0.5 X10e3 (0-0.7); EOSINOPHIL% 4.8 % (0.0-7.0); HEMATOCRIT 24.1 % (38.0-50.0); HEMOGLOBIN 8.2 gm/dL (13.0-16.0); LYMPHOCYTE# 1.1 X10e3 (1.0-3.5); LYMPHOCYTE% 10.2 % (17.0-45.0); MEAN CELL VOLUME 101.6 FL (83-96); MEAN CORPUSCULAR HEMOGLOBIN 34.8 PG (28-34); MEAN CORPUSCULAR HGB CONC 34.3 g/dL (30-36); MEAN PLATELET VOLUME 8.3 FL (6.5-11.5); MONOCYTE# 1.3 X10e3 (0-1.0); MONOCYTE% 12.2 % (3.0-12.0); NEUTROPHIL# 7.6 X10e3 (1.5-7.1); NEUTROPHIL% 71.6 % (40-75); PLATELET COUNT 368 X10e3 (140-420); RED BLOOD COUNT 2.37 X10e (3.90-5.60); RED CELL DISTRIBUTION WIDTH 13.6 % (11.0-15.5); WHITE BLOOD COUNT 10.6 X10e3 (4.0-10.5)
[2017-03-26 04:27] LABS: BUN/CREATININE RATIO 12.22; CALCIUM SERUM 8.1 mg/dL (8.4-10.2); CREATININE SERUM 0.9 mg/dL (0.6-1.4); GLOM FILT RATE Estimated 86.8 mL/min (>60); POTASSIUM 4.9 mmol/L (3.5-5.1)
[2017-03-26 04:46] LABS: HYPOCHROMIA MOD; PLATELET ESTIMATE NORMAL (NORMAL); POLYCHROMASIA SL; STOMATOCYTE PRESENT
[2017-03-26 18:03] LABS: HEMATOCRIT 24.9 % (38.0-50.0); HEMOGLOBIN 8.3 gm/dL (13.0-16.0)
[2017-03-27 03:18] LABS: BASOPHIL# 0.2 X10e3 (0-0.3); BASOPHIL% 1.4 % (0-2.5); EOSINOPHIL# 0.8 X10e3 (0-0.7); EOSINOPHIL% 4.8 % (0.0-7.0); HEMATOCRIT 23.8 % (38.0-50.0); LYMPHOCYTE# 1.6 X10e3 (1.0-3.5); LYMPHOCYTE% 9.7 % (17.0-45.0); MEAN CELL VOLUME 99.8 FL (83-96); MEAN CORPUSCULAR HEMOGLOBIN 33.5 PG (28-34); MEAN CORPUSCULAR HGB CONC 33.6 g/dL (30-36); MEAN PLATELET VOLUME 7.2 FL (6.5-11.5); MONOCYTE# 2.4 X10e3 (0-1.0); NEUTROPHIL# 11.1 X10e3 (1.5-7.1); NEUTROPHIL% 69.1 % (40-75); PLATELET COUNT 440 X10e3 (140-420); RED BLOOD COUNT 2.38 X10e (3.90-5.60); RED CELL DISTRIBUTION WIDTH 13.5 % (11.0-15.5)
[2017-03-27 03:19] LABS: DIFF IND YES; WHITE BLOOD COUNT 16.1 X10e3 (4.0-10.5)
[2017-03-27 03:50] LABS: PLATELET ESTIMATE INCREASED (NORMAL)
[2017-03-27 03:51] LABS: ANISOCYTOSIS SL; POLYCHROMASIA SL
[2017-03-27 03:52] LABS: POIKILOCYTOSIS SL
[2017-03-27 07:39] LABS: MAGNESIUM 1.8 mg/dL (1.6-3.0); POTASSIUM 4.5 mmol/L (3.5-5.1)
== END 2017-03-27 18:30 | DRG 853 ==
LOC: CED 19:07 → CICCU3 21:55 → CEDOF 21:55 → CED 21:55 → C3A PCU 21:55 → CEDOF 03-18 02:31 → CICCU3 03-18 02:31 → C3A PCU 03-19 16:36 → C4B 03-25 19:40
PROVIDERS: Emergency Medicine; Family Medicine; Internal Medicine; Internal Medicine Cardiovascular Disease; Internal Medicine Pulmonary Disease; Nurse Practitioner Family; Orthopaedic Surgery
PROC: 5A1935Z Respiratory Ventilation, Less than 24 Consecutive Hours (ICD-10-PCS; 2017-03-17)
PROC: B24BZZZ Ultrasonography of Heart with Aorta (ICD-10-PCS; 2017-03-18)
PROC: 4A023N7 Measurement of Cardiac Sampling and Pressure, Left Heart, Percutaneous Approach (ICD-10-PCS; 2017-03-23)
PROC: B215YZZ Fluoroscopy of Left Heart using Other Contrast (ICD-10-PCS; 2017-03-23)
PROC: B211YZZ Fluoroscopy of Multiple Coronary Arteries using Other Contrast (ICD-10-PCS; 2017-03-23)
PROC: 30233J1 Transfusion of Nonautologous Serum Albumin into Peripheral Vein, Percutaneous Approach (ICD-10-PCS; 2017-03-25)
PROC: 0RRJ00Z Replacement of Right Shoulder Joint with Reverse Ball and Socket Synthetic Substitute, Open Approach (ICD-10-PCS; principal; 2017-03-25 13:30)
DX: A41.9 Sepsis, unspecified organism (principal); J96.01 Acute respiratory failure with hypoxia; I21.4 Non-ST elevation (NSTEMI) myocardial infarction; J69.0 Pneumonitis due to inhalation of food and vomit; G92 Toxic encephalopathy; N17.9 Acute kidney failure, unspecified; J96.02 Acute respiratory failure with hypercapnia; E87.2 Acidosis; F10.231 Alcohol dependence with withdrawal delirium; D68.59 Other primary thrombophilia; G40.89 Other seizures; F10.239 Alcohol dependence with withdrawal, unspecified; S42.201A Unspecified fracture of upper end of right humerus, initial encounter for closed fracture; S42.302A Unspecified fracture of shaft of humerus, left arm, initial encounter for closed fracture; M62.82 Rhabdomyolysis; F10.27 Alcohol dependence with alcohol-induced persisting dementia; F05 Delirium due to known physiological condition; F33.2 Major depressive disorder, recurrent severe without psychotic features; M48.54XA Collapsed vertebra, not elsewhere classified, thoracic region, initial encounter for fracture; E44.0 Moderate protein-calorie malnutrition; I47.1 Supraventricular tachycardia; X58.XXXA Exposure to other specified factors, initial encounter; R40.0 Somnolence; J44.9 Chronic obstructive pulmonary disease, unspecified; I48.0 Paroxysmal atrial fibrillation; R74.0 Nonspecific elevation of levels of transaminase and lactic acid dehydrogenase [LDH]; Y90.0 Blood alcohol level of less than 20 mg/100 ml; R73.9 Hyperglycemia, unspecified; M81.0 Age-related osteoporosis without current pathological fracture; E78.5 Hyperlipidemia, unspecified; F17.200 Nicotine dependence, unspecified, uncomplicated; Z91.14 Patient's other noncompliance with medication regimen; Z88.0 Allergy status to penicillin; Z79.82 Long term (current) use of aspirin; Z86.711 Personal history of pulmonary embolism; Z86.718 Personal history of other venous thrombosis and embolism; Z68.31 Body mass index [BMI] 31.0-31.9, adult; D64.9 Anemia, unspecified
CPT/HCPCS: 36415; 36600; 51702; 70450; 71010; 71250; 73030; 73200; 80048; 80053; 80061; 80076; 80307; 81003; 82140; 82248; 82308; 82550; 82553; 82607; 82746; 82803; 82947; 83605; 83735; 84100; 84132; 84439; 84443; 84484; 85014; 85018; 85025; 85027; 85610; 85730; 87040; 87070; 87086; 87205; 92610; 93005; 93306; 94002; 94640; 94760; 94761; 95816; 96361; 96374; 96375; 97110; 97163; 97167; 97530; 97535; 99291; C1713; C1769; C1776; C1887; C1894; C9254; G0480; G8978-GP; G8979-GP; G8980-GP; G8987-GO; G8988-GO; G8996-GN; G8997-GN; G8998-GN; J0696; J1630; J1644; J1650; J1815; J1940; J1953; J2060; J2250; J2270; J2370; J2405; J2710; J2795; J3010; J3370; J3411; J3475; J7042; P9045